=== PATIENT | male | born 1970 | race African-American/Black ===

== ENCOUNTER 2018-05-11 10:06 | Inpatient (IN) | payer BC ==
[2018-05-11 11:32] LABS: APPEARANCE,URINE SLIGHTLY-CLOUDY; BILIRUBIN,URINE NEGATIVE (NEGATIVE); COLOR,URINE YELLOW; GLUCOSE, URINE >=500 mg/dL (NEGATIVE); KETONES,URINE 80 mg/dL (NEGATIVE); LEUKOCYTE ESTERASE,URINE NEGATIVE (NEGATIVE); NITRITE,URINE NEGATIVE (NEGATIVE); PROTEIN,URINE NEGATIVE (NEGATIVE); URINE SPECIFIC GRAVITY 1.026; UROBILINOGEN,URINE NEGATIVE mg/dL (<2.0)
[2018-05-11] MEDS ORDERED: MAG HYDROX/AL HYDROX/SIMETH SUSP 30 ML UDCUP PO ONE (11:48)
[2018-05-11] MEDS ORDERED: NORMAL SALINE 1000 ML 1,000 ML IV ONE ×2 (11:48→15:08)
[2018-05-11] MEDS ORDERED: LIDOCAINE 2% VISCOUS SOLN 20 ML UDCUP PO ONE (11:48)
[2018-05-11] MEDS ORDERED: METOCLOPRAMIDE HCL ORAL SOLN 10 MG/10 ML UDCUP PO ONE (11:48)
[2018-05-11] MEDS ORDERED: FAMOTIDINE INJ/PF 20 MG/2 ML SDV IV ONE (11:49)
--- NOTE | 2018-05-11 11:51 | ER Document Report ---
ED Medical Screen (RME) - General Chief Complaint: Urinary Frequency Stated Complaint: ABDOMINAL PAIN Time Seen by Provider: 05/11/18 11:44 Mode of Arrival: Ambulatory Information source: Patient Notes: 48-year-old male with a history of diabetes presents the emergency department with complaints of epigastric abdominal pain, nausea, vomiting, feeling dehydrated, and urinating every 30 minutes. Patient describes his abdominal pain as a dull aching sensation located just above the periumbilical area. He denies any radiation. He denies any alleviating or exacerbating factors. He denies any chest pain or shortness of breath, diarrhea, constipation. I have greeted and performed a rapid initial assessment of this patient. A comprehensive ED assessment and evaluation of the patient, analysis of test results and completion of the medical decision making process will be conducted by additional ED providers. PHYSICAL EXAMINATION: GENERAL: Well-appearing, well-nourished and in no acute distress. HEAD: Atraumatic, normocephalic. EYES: Pupils equal round extraocular movements intact, conjunctiva are normal. ENT: Nares patent NECK: Normal range of motion LUNGS: No respiratory distress Musculoskeletal: Normal range of motion NEUROLOGICAL: Normal speech, normal gait. TRAVEL OUTSIDE OF THE [place] IN LAST 30 DAYS: No - Related Data Allergies/Adverse Reactions: No Known Allergies Allergy (Unverified 05/11/18 10:17) Past Medical History - Social History Chew tobacco use (# tins/day): No Frequency of alcohol use: None Drug Abuse: None Endocrine Medical History: Reports: Hx Diabetes Mellitus Type 2 Renal/ Medical History: Denies: Hx Peritoneal Dialysis Physical Exam - Vital signs Vitals: Temp Pulse Resp BP Pulse Ox 97.5 F 115 H 18 139/94 H 100 05/11/18 10:22 05/11/18 10:22 05/11/18 10:22 05/11/18 10:05/11/18 10:22 Course - Vital Signs Vital signs: Temp Pulse Resp BP Pulse Ox 97.5 F 115 H 18 139/94 H 100 05/11/18 10:22 05/11/18 10:22 05/11/18 10:22 05/11/18 10:22 05/11/18 10:22 - Laboratory Laboratory results interpreted by me: 05/11/18 11:04 Urine Glucose (UA) >=500 H Urine Ketones 80 H
--- NOTE | 2018-05-11 12:14 | RADIOLOGY REPORT (SQ) ---
EXAM DESCRIPTION: ACUTE ABDOMEN SERIES COMPLETED DATE/TIME: 05/11/2018 12:05 pm REASON FOR STUDY: epigastric abdominal pain COMPARISON: None. NUMBER OF VIEWS: Three views. TECHNIQUE: Frontal chest, supine abdomen and upright/decubitus abdomen radiographic images acquired. LIMITATIONS: None. FINDINGS: CHEST: Lungs clear of infiltrates. FREE AIR: None. No abnormal gas collections. BOWEL GAS PATTERN: Nonobstructive pattern. No dilated loops or air fluid levels. CALCIFICATIONS: No suspicious calcifications. HARDWARE: None in the abdomen. SOFT TISSUES: No gross mass or suggestion of organomegaly. BONES: No acute fracture. No worrisome bone lesions. OTHER: No other significant finding. IMPRESSION: NO RADIOGRAPHIC EVIDENCE FOR ACUTE ABDOMINAL DISEASE. TECHNICAL DOCUMENTATION: JOB ID: [id number] [employer]- All Rights Reserved Reading location - IP/workstation name: [email or web address]
[2018-05-11 12:55] LABS: ABSOLUTE LYMPHOCYTES (AUTO) 1.2 10^3/uL (0.5-4.7); ABSOLUTE MONOCYTES (AUTO) 0.6 10^3/uL (0.1-1.4); BASOPHILS % (AUTO) 0.3 % (0-2); HEMATOCRIT 48.8 % (37.9-51.0); HEMOGLOBIN 16.5 g/dL (13.5-17.0); LYMPHOCYTES % (AUTO) 15.6 % (13-45); MEAN CORPUSCULAR HEMOGLOBIN 31.9 pg (27.0-33.4); MEAN CORPUSCULAR HGB CONC 33.8 g/dL (32.0-36.0); MEAN CORPUSCULAR VOLUME 95 fl (80-97); MONOCYTES % (AUTO) 7.2 % (3-13); PLATELET COUNT 532 10^3/uL (150-450); RED BLOOD COUNT 5.16 10^6/uL (4.35-5.55); RED CELL DISTRIBUTION WIDTH 13.2 % (11.5-14.0); SEGMENTED NEUTROPHILS % (AUTO) 76.9 % (42-78); TOTAL CELLS COUNTED % (AUTO) 100 %; WHITE BLOOD COUNT 7.9 10^3/uL (4.0-10.5)
[2018-05-11 13:08] LABS: ALANINE AMINOTRANSFERASE 19 U/L (21-72); ALBUMIN 5.8 g/dL (3.5-5.0); ALKALINE PHOSPHATASE 136 U/L (38-126); ASPARTATE AMINO TRANSFERASE 23 U/L (17-59); BILIRUBIN,DIRECT 0.5 mg/dL (0.0-0.4); BILIRUBIN,TOTAL 1.5 mg/dL (0.2-1.3); BLOOD UREA NITROGEN 21 mg/dL (7-20); CALCIUM 11.3 mg/dL (8.4-10.2); LIPASE 238.7 U/L (23-300)
[2018-05-11 13:14] LABS: CARBON DIOXIDE 17 mmol/L (22-30); CHLORIDE 91 mmol/L (98-107); SODIUM 136.1 mmol/L (137-145)
[2018-05-11 13:24] LABS: ANION GAP 28 (5-19)
[2018-05-11 13:25] LABS: GLUCOSE 603 mg/dL (75-110); POTASSIUM 6.1 mmol/L (3.6-5.0)
[2018-05-11] MEDS ORDERED: CALCIUM GLUCONATE 1000 MG/10 ML INJ IV ONE (15:18)
[2018-05-11] MEDS ORDERED: FUROSEMIDE INJ/PF 40 MG/4 ML SDV IV ONE (15:19)
[2018-05-11] MEDS ORDERED: INSULIN REG, HUMAN 100 UNIT/ML 3 ML VIAL (PYX) IV ONE (15:19)
--- NOTE | 2018-05-11 15:22 | ER Document Report ---
ED General - General Chief Complaint: Urinary Frequency Stated Complaint: ABDOMINAL PAIN Time Seen by Provider: 05/11/18 11:44 Mode of Arrival: Ambulatory Information source: [facility], [facility] Records Notes: 48-year-old male with type 2 diabetes presents with complaint of increased urinary frequency, nausea, vomiting and abdominal pain that started several days prior to arrival. Patient reports that he has not been checking his sugars or taking his metformin as prescribed. He states that he lost his job and insurance and has not been able to afford his metformin. Patient denies any fever, chills, chest pain, palpitations. TRAVEL OUTSIDE OF THE [place] IN LAST 30 DAYS: No - HPI Onset: Other Onset/Duration: Gradual, Gone Quality of pain: No pain Severity: None Associated symptoms: Nausea, Vomiting. denies: Chest pain, Fever, Headache, Shortness of breath Exacerbated by: Denies Relieved by: Denies Similar symptoms previously: No Recently seen / treated by doctor: No - Related Data Allergies/Adverse Reactions: No Known Allergies Allergy (Unverified 05/11/18 10:17) Past Medical History - General Information source: Patient - Social History Smoking Status: Unknown if Ever Smoked Chew tobacco use (# tins/day): No Frequency of alcohol use: None Drug Abuse: None Lives with: Alone Family History: Reviewed & Not Pertinent Patient has suicidal ideation: No Patient has homicidal ideation: No - Past Medical History Cardiac Medical History: Reports: Hx Hypertension Endocrine Medical History: Reports: Hx Diabetes Mellitus Type 2 Renal/ Medical History: Denies: Hx Peritoneal Dialysis Review of Systems - Review of Systems Notes: REVIEW OF SYSTEMS: CONSTITUTIONAL : Denies fever, chills, or sweats. Denies recent illness. Denies weight loss, recent hospitalizations. EENT: Denies visual changes, eye pain. Denies sore throat, oral lesions, difficulty swallowing. CARDIOVASCULAR: Denies chest pain. Denies palpitations. Denies lower extremity edema. RESPIRATORY: Denies cough. Denies shortness of breath, wheezing. GASTROINTESTINAL: Denies abdominal distention. Denies or diarrhea. Denies blood in vomitus, stools, or per rectum. Denies black, tarry stools. Denies constipation. GENITOURINARY: Denies difficulty urinating, painful urination, blood in urine, testicular pain or penile discharge. MUSCULOSKELETAL: Denies back or neck pain or stiffness. Denies joint pain or swelling. SKIN: Denies rash, lesions or sores. HEMATOLOGIC : Denies easy bruising or bleeding. LYMPHATIC: Denies swollen glands. NEUROLOGICAL: Denies confusion or altered mental status. Denies loss of consciousness. Denies dizziness or lightheadedness. Denies headache. Denies weakness or paralysis. Denies problems difficulty with ambulation, slurred speech. Denies sensory loss, numbness, or tingling. Denies seizures. PSYCHIATRIC: Denies anxiety or stress. Denies depression, suicidal ideation, or Physical Exam - Vital signs Vitals: Temp Pulse Resp BP Pulse Ox 97.5 F 115 H 18 139/94 H 100 05/11/18 10:22 05/11/18 10:05/11/18 10:05/11/18 10:05/11/18 10:22 - Notes Notes: PHYSICAL EXAMINATION: GENERAL: Well-appearing, well-nourished and in no acute distress. Fruity smell to room HEAD: Atraumatic, normocephalic. EYES: Pupils equal round and reactive to light, extraocular movements intact, sclera anicteric, conjunctiva are normal. ENT: Nares patent, oropharynx clear without exudates. Dry mucous membranes. NECK: Normal range of motion, supple without lymphadenopathy LUNGS: Breath sounds clear to auscultation bilaterally and equal. No wheezes rales or rhonchi. HEART: Regular rate and rhythm without murmurs ABDOMEN: Soft, nontender, nondistended abdomen. No guarding, no rebound. No masses appreciated. Musculoskeletal: Normal range of motion, no pitting or edema. No cyanosis. NEUROLOGICAL: Cranial nerves grossly intact. Normal speech, normal gait. Normal sensory, motor exams PSYCH: Normal mood, normal affect. SKIN: Warm, Dry, normal turgor, no rashes or lesions noted. Course - Re-evaluation Re-evalutation: Temp Pulse Resp BP Pulse Ox 97.5 F 115 H 18 139/94 H 100 05/11/18 10:22 05/11/18 10:22 05/11/18 10:22 05/11/18 10:22 05/11/18 10:22 Acute Abdomen Series 05/11/18 11:48 IMPRESSION: NO RADIOGRAPHIC EVIDENCE FOR ACUTE ABDOMINAL DISEASE. Laboratory 05/11/18 05/11/18 05/11/18 11:04 12:26 12:26 WBC 7.9 RBC 5.16 Hgb 16.5 Hct 48.8 MCV 95 MCH 31.9 MCHC 33.8 RDW 13.2 Plt Count 532 H Seg Neutrophils % 76.9 Lymphocytes % 15.6 Monocytes % 7.2 Eosinophils % 0.0 Basophils % 0.3 Absolute Neutrophils 6.0 Absolute Lymphocytes 1.2 Absolute Monocytes 0.6 Absolute Eosinophils 0.0 Absolute Basophils 0.0 VBG pH VBG pCO2 VBG HCO3 VBG Base Excess Sodium 136.1 L Potassium 6.1 H* Chloride 91 L Carbon Dioxide 17 L Anion Gap 28 H BUN 21 H Creatinine 1.32 H Est GFR ( Amer) > 60 Est GFR (Non-Af Amer) 58 L Glucose 603 H* POC Glucose Calcium 11.3 H Total Bilirubin 1.5 H Direct Bilirubin 0.5 H Neonat Total Bilirubin Not Reportable Neonat Direct Bilirubin Not Reportable Neonat Indirect Bili Not Reportable AST 23 ALT 19 L Alkaline Phosphatase 136 H Total Protein 10.0 H Albumin 5.8 H Lipase 238.7 Urine Color YELLOW Urine Appearance SLIGHTLY-CLOUDY Urine pH 5.0 Ur Specific [place] 1.026 Urine Protein NEGATIVE Urine Glucose (UA) >=500 H Urine Ketones 80 H Urine Blood NEGATIVE Urine Nitrite NEGATIVE Urine Bilirubin NEGATIVE Urine Urobilinogen NEGATIVE Ur Leukocyte Esterase NEGATIVE Urine WBC (Auto) 0 Squamous Epi Cells Auto <1 Urine Mucus (Auto) RARE Urine Ascorbic Acid NEGATIVE 05/11/18 05/11/18 05/11/18 16:47 17:30 17:55 WBC RBC Hgb Hct MCV MCH MCHC RDW Plt Count Seg Neutrophils % Lymphocytes % Monocytes % Eosinophils % Basophils % Absolute Neutrophils Absolute Lymphocytes Absolute Monocytes Absolute Eosinophils Absolute Basophils VBG pH 7.20 L VBG pCO2 42.8 VBG HCO3 16.3 L VBG Base Excess -11.4 Sodium 143.0 Potassium 3.8 D Chloride 103 Carbon Dioxide 26 Anion Gap 14 BUN 10 Creatinine 0.81 Est GFR ( Amer) > 60 Est GFR (Non-Af Amer) > 60 Glucose 112 H POC Glucose 399 H Calcium 9.9 Total Bilirubin Direct Bilirubin Neonat Total Bilirubin Neonat Direct Bilirubin Neonat Indirect Bili AST ALT Alkaline Phosphatase Total Protein Albumin Lipase Urine Color Urine Appearance Urine pH Ur Specific [place] Urine Protein Urine Glucose (UA) Urine Ketones Urine Blood Urine Nitrite Urine Bilirubin Urine Urobilinogen Ur Leukocyte Esterase Urine WBC (Auto) Squamous Epi Cells Auto Urine Mucus (Auto) Urine Ascorbic Acid 05/11/18 05/11/18 18:39 19:52 WBC RBC Hgb Hct MCV MCH MCHC RDW Plt Count Seg Neutrophils % Lymphocytes % Monocytes % Eosinophils % Basophils % Absolute Neutrophils Absolute Lymphocytes Absolute Monocytes Absolute Eosinophils Absolute Basophils VBG pH VBG pCO2 VBG HCO3 VBG Base Excess Sodium Potassium Chloride Carbon Dioxide Anion Gap BUN Creatinine Est GFR ( Amer) Est GFR (Non-Af Amer) Glucose POC Glucose 385 H 389 H Calcium Total Bilirubin Direct Bilirubin Neonat Total Bilirubin Neonat Direct Bilirubin Neonat Indirect Bili AST ALT Alkaline Phosphatase Total Protein Albumin Lipase Urine Color Urine Appearance Urine pH Ur Specific [place] Urine Protein Urine Glucose (UA) Urine Ketones Urine Blood Urine Nitrite Urine Bilirubin Urine Urobilinogen Ur Leukocyte Esterase Urine WBC (Auto) Squamous Epi Cells Auto Urine Mucus (Auto) Urine Ascorbic Acid Acute Abdomen Series 05/11/18 11:48 IMPRESSION: NO RADIOGRAPHIC EVIDENCE FOR ACUTE ABDOMINAL DISEASE. 05/11/18 15:21 48-year-old male with type 2 diabetes presents with complaint of increased urinary frequency, abdominal pain, nausea, vomiting. Prior to my exam patient received GI cocktail, Reglan and reports relief of his abdominal pain and nausea. Patient does report being noncompliant with his metformin for several months due to loss of insurance. Vital signs reviewed upon arrival and patient is tachycardic, mildly hypertensive. He does not appear toxic but he does appear dehydrated. Patient's CMP, VBG and urinalysis consistent with DKA. Patient received 3 L of normal saline, insulin, calcium were administered. EKG was obtained which showed the patient to be sinus tachycardia at a rate of 103. T waves in V2 appear to be peaked. QTc 403. Patient does have T wave inversions in lead III. Repeat BMP shows glucose now to be 112 with an improvement in the patient's anion gap. D5 half-normal saline was initiated. Nurse reminded that patient needs to 30 Accu-Cheks. Patient accepted to the IMCU by hospitalist Dr. Hernandez. 05/12/18 01:27 05/12/18 01:33 - Vital Signs Vital signs: Temp Pulse Resp BP Pulse Ox 97.5 F 115 H 22 H 135/90 H 96 05/11/18 10:22 05/11/18 10:22 05/11/18 23:22 05/11/18 23:22 05/11/18 23:22 - Laboratory Result Diagrams: 05/11/18 12:26 05/11/18 22:15 Laboratory results interpreted by me: 05/11/18 05/11/18 05/11/18 11:04 12:26 12:26 Plt Count 532 H VBG pH VBG HCO3 Sodium 136.1 L Potassium 6.1 H* Chloride 91 L Carbon Dioxide 17 L Anion Gap 28 H BUN 21 H Creatinine 1.32 H Est GFR (Non-Af Amer) 58 L Glucose 603 H* POC Glucose Calcium 11.3 H Total Bilirubin 1.5 H Direct Bilirubin 0.5 H ALT 19 L Alkaline Phosphatase 136 H Total Protein 10.0 H Albumin 5.8 H Urine Glucose (UA) >=500 H Urine Ketones 80 H 05/11/18 05/11/18 05/11/18 16:47 17:30 17:55 Plt Count VBG pH 7.20 L VBG HCO3 16.3 L Sodium Potassium Chloride Carbon Dioxide Anion Gap BUN Creatinine Est GFR (Non-Af Amer) Glucose 112 H POC Glucose 399 H Calcium Total Bilirubin Direct Bilirubin ALT Alkaline Phosphatase Total Protein Albumin Urine Glucose (UA) Urine Ketones 05/11/18 05/11/18 18:39 19:52 Plt Count VBG pH VBG HCO3 Sodium Potassium Chloride Carbon Dioxide Anion Gap BUN Creatinine Est GFR (Non-Af Amer) Glucose POC Glucose 385 H 389 H Calcium Total Bilirubin Direct Bilirubin ALT Alkaline Phosphatase Total Protein Albumin Urine Glucose (UA) Urine Ketones - Diagnostic Test Radiology reviewed: Image reviewed, Reports reviewed - EKG Interpretation by Me EKG shows normal: Sinus rhythm, ST-T Waves - T wave inversions in lead III. Rate: Tachycardia Rhythm: NSR Voltage: Consistant with LVH When compared to previous EKG there are: Previous EKG unavailable Critical Care Note - Critical Care Note Total time excluding time spent on procedures (mins): 40 - Minutes of critical care time spent in direct contact evaluating and reevaluating the patient, treating symptoms, reviewing labs and studies and speaking with family and consultants excluding any procedures Discharge - Discharge Clinical Impression: DM (diabetes mellitus) type 2, uncontrolled, with ketoacidosis, Hypertension associated with diabetes DKA, type 2 Qualifiers: Diabetes mellitus alf insulin use: without alf use Diabetes nayan manzanares complication detail: without coma Qualified Code(s): E11.10 - Type 2 diabetes mellitus with ketoacidosis without coma Nausea with vomiting Qualifiers: Vomiting type: bilious vomiting Qualified Code(s): R11.14 - Bilious vomiting Condition: Critical Disposition: ADMITTED INPATIENT Admitting Provider: Hospitalist Unit Admitted: [facility]
[2018-05-11] MEDS ORDERED: LABETALOL HCL INJ 20 MG/4 ML DISP.SYRIN IV ONE (17:41)
[2018-05-11] MEDS ORDERED: NORMAL SALINE 100 ML with INSULIN REGULAR, HUMAN 100 UNIT IV PRN ×2 (17:44)
[2018-05-11] MEDS ORDERED: DEXTROSE 50%-WATER 25 GM/50 ML DISP.SYRIN IV PRN ×4 (17:44→21:27)
[2018-05-11] MEDS ORDERED: DEXTROSE 40% GEL 15 GM TUBE PO PRN ×4 (17:44→21:27)
[2018-05-11] MEDS ORDERED: GLUCAGON,HUMAN RECOMB 1 MG INJ IM PRN ×2 (17:44→21:27)
[2018-05-11 18:10] LABS: VENOUS BLOOD BASE EXCESS -11.4 mmol/L; VENOUS BLOOD HCO3 16.3 mmol/L (20-32); VENOUS BLOOD PCO2 42.8 mmHg (35-63); VENOUS BLOOD PH 7.2 (7.30-7.42)
[2018-05-11] MEDS ORDERED: INSULIN REG, HUMAN 100 UNIT/ML 3 ML VIAL (PYX) ONE (18:26)
[2018-05-11] MEDS ORDERED: MAG HYDROX/AL HYDROX/SIMETH SUSP 30 ML UDCUP PO PRN (21:13)
[2018-05-11] MEDS ORDERED: ONDANSETRON HCL INJ/PF 4 MG/2 ML SDV IV PRN (21:13)
[2018-05-11] MEDS ORDERED: MAGNESIUM HYDROXIDE SUSP 30 ML UDCUP PO PRN (21:13)
[2018-05-11] MEDS ORDERED: ONDANSETRON 4 MG TAB.RAPDIS PO PRN (21:13)
[2018-05-11] MEDS ORDERED: NORMAL SALINE 1000 ML 1,000 ML IV PRN (21:13)
[2018-05-11] MEDS ORDERED: NICOTINE 21 MG/24 HR PATCH.TD24 TD PRN (21:20)
[2018-05-11] MEDS ORDERED: ACETAMINOPHEN 650 MG SUPP.RECT PR PRN (21:20)
[2018-05-11] MEDS ORDERED: ACETAMINOPHEN 325 MG TABLET PO PRN (21:20)
[2018-05-11] MEDS ORDERED: LABETALOL HCL INJ 20 MG/4 ML DISP.SYRIN IV PRN (21:20)
[2018-05-11] MEDS ORDERED: NALBUPHINE HCL INJ 10 MG/1 ML AMPULE IV PRN (21:20)
[2018-05-11] MEDS ORDERED: FAMOTIDINE 20 MG TABLET PO SCH (22:00)
[2018-05-11] MEDS ORDERED: INSULIN GLARGINE,HUM.REC.ANLOG 300 UNIT/3 ML INSULN.PEN SUBCUT SCH (22:00)
[2018-05-11] MEDS ORDERED: INSULIN GLARGINE,HUM.REC.ANLOG 1,000 UNIT/10 ML UNIT SUBCUT SCH (22:00)
[2018-05-11] MEDS ORDERED: METOCLOPRAMIDE HCL INJ/PF 10 MG/2 ML SDV IV SCH (22:00)
[2018-05-11] MEDS ORDERED: POTASSI CL 20 MEQ/50 ML RIDER 20 MEQ/50 ML RTUPB IV ONE (22:30)
[2018-05-11] MEDS ORDERED: DEXTROSE 5%-1/2 NORMAL SALINE 1,000 ML IV ONE (22:52)
[2018-05-11 23:03] LABS: BLOOD UREA NITROGEN 19 mg/dL (7-20); GLUCOSE 387 mg/dL (75-110)
[2018-05-11 23:09] LABS: CHLORIDE 99 mmol/L (98-107); SODIUM 137.7 mmol/L (137-145)
[2018-05-11 23:12] LABS: CREATINE KINASE MB 3.27 ng/mL (<4.55)
[2018-05-11 23:18] LABS: TROPONIN I < 0.012 ng/mL
[2018-05-11 23:36] LABS: POTASSIUM 5.4 mmol/L (3.6-5.0)
[2018-05-11 23:37] LABS: ANION GAP 25 (5-19)
[2018-05-11] MEDS: INSULIN REG, HUMAN 100 UNIT/ML 3 ML VIAL (PYX) SUBCUT SCH (23:48)
[2018-05-12] LABS: CARBON DIOXIDE 14 mmol/L (22-30)
--- NOTE | 2018-05-12 04:10 | PDOC H&P ---
History of Present Illness Admission Date/PCP: 05/11/2018 No PCP Patient complains of: Nausea, vomiting and abdominal pain History of Present Illness: DAVI IVEY is a 48 year old male who presented to the emergency room with a several day history of nausea vomiting and epigastric abdominal pain. He admits progressively worsening nausea with vomiting and a moderately severe becoming severe, constant, dull, aching, epigastric pain without radiation occurring over the last 3 or 4 days. He additionally complains of the associated symptom of urinary frequency without dysuria or hematuria occurring over the same timeframe. He denies having prior similar symptoms and has not identified any aggravating or ameliorating factors for his abdominal pain with nausea and vomiting. He admits that he is a type II diabetic and has not been taking his oral diabetic medication for several months due to financial problems associated with the loss of his job. Because of the worsening of his symptoms especially the increased level of his abdominal pain he presented to the emergency room for evaluation. In the emergency room he was found to have an initial blood sugar of 603, with a pH of 7.2, a bicarbonate of 17, a positive urine ketones and a potassium of 6.1. He was started on insulin drip and IV fluids. His blood sugar had reduced to 385 and he was showing a positive response with improvement in his overall feeling of well-being. He was subsequently admitted to the [facility] for further evaluation and treatment of his acute diabetic ketoacidosis. Past Medical History Cardiac Medical History: Denies: Coronary Artery Disease, Hypertension, Peripheral Vascular Disease Pulmonary Medical History: Denies: Asthma, Chronic Obstructive Pulmonary Disease (COPD) EENT Medical History: Denies: Cataracts, Nose - Epistaxis Neurological Medical History: Denies: Multiple Sclerosis, Seizures Endocrine Medical History: Reports: Diabetes Mellitus Type 2, Obesity Denies: Diabetes Mellitus Type 1, Hyperthyroidism, Hypothyroidism Renal/ Medical History: Denies: Chronic Kidney Disease, Nephrolithiasis Malignancy Medical History: Reports: None GI Medical History: Denies: Cirrhosis, Hepatitis Musculoskeltal Medical History: Denies: Arthritis, Gout Skin Medical History: Denies: Eczema, Psoriasis Psychiatric Medical History: Denies: Alcohol Dependency, Substance Abuse, Tobacco Dependency Traumatic Medical History: Reports: None Hematology: Denies: Anemia, Bleeding Tendencies Infectious Medical History: Reports: None Past Surgical History Past Surgical History: Reports: None Social History Information Source: Patient Lives with: Alone Smoking Status: Never Smoker Frequency of Alcohol Use: None Hx Recreational Drug Use: No Drugs: None Hx Prescription Drug Abuse: No - Advance Directive Resuscitation Status: Full Code Surrogate healthcare decision maker:: Patient refuses to name a possible democrat. Family History Family History: CAD, DM, Hypertension, Malignancy, Other - Heart failure Parental Family History Reviewed: Yes Children Family History Reviewed: No Sibling(s) Family History Reviewed.: Yes Medication/Allergy Allergies/Adverse Reactions: No Known Allergies Allergy (Unverified 05/11/18 10:17) Review of Systems Constitutional: ABSENT: chills, fever(s) Eyes: ABSENT: visual disturbances, other - Ocular pain Ears: ABSENT: other - Ear pain Nose, Mouth, and Throat: ABSENT: mouth pain, sore throat Cardiovascular: ABSENT: chest pain, dyspnea on exertion, orthropnea, palpitations Respiratory: ABSENT: cough, dyspnea Gastrointestinal: PRESENT: abdominal pain, nausea, vomiting. ABSENT: constipation, diarrhea Genitourinary: ABSENT: dysuria, hematuria Musculoskeletal: ABSENT: back pain, joint swelling Integumentary: ABSENT: pruritus, rash Neurological: ABSENT: confusion, convulsions, memory loss Psychiatric: ABSENT: anxiety, depression Endocrine: ABSENT: cold intolerance, heat intolerance Hematologic/Lymphatic: ABSENT: easy bleeding, easy bruising Physical Exam Vital Signs: Temp Pulse Resp BP Pulse Ox 97.5 F 115 H 23 H 128/90 H 97 05/11/18 10:22 05/11/18 10:22 05/11/18 19:01 05/11/18 19:01 05/11/18 19:01 Intake & Output 05/09/18 05/10/18 05/11/18 23:59 23:59 23:59 Weight 124 kg General appearance: PRESENT: no acute distress, cooperative, morbidly obese Head exam: PRESENT: atraumatic, normocephalic Eye exam: PRESENT: conjunctiva pink, EOMI. ABSENT: scleral icterus Ear exam: PRESENT: normal external ear exam. ABSENT: bleeding, drainage Mouth exam: PRESENT: dry mucosa, neck supple Neck exam: ABSENT: JVD, thyromegaly, tracheal deviation Respiratory exam: PRESENT: clear to auscultation fernandez, symmetrical, unlabored Cardiovascular exam: PRESENT: RRR. ABSENT: clicks, gallop, rubs Pulses: PRESENT: normal radial pulses, normal dorsalis pedis pul Vascular exam: PRESENT: normal capillary refill. ABSENT: pallor GI/Abdominal exam: PRESENT: normal bowel sounds, soft, tenderness - Minimal epigastric tenderness on deep palpation Rectal exam: PRESENT: deferred Extremities exam: ABSENT: joint swelling, pedal edema Musculoskeletal exam: PRESENT: full ROM, normal inspection Neurological exam: PRESENT: alert, oriented to person, oriented to place, oriented to time, oriented to situation, CN II-XII grossly intact. ABSENT: motor sensory deficit Psychiatric exam: PRESENT: appropriate affect, normal mood Skin exam: PRESENT: dry, intact, warm. ABSENT: jaundice, rash, urticaria Results Laboratory Results: 05/11/18 12:26 05/11/18 17:30 05/11/18 05/11/18 05/11/18 11:04 12:26 12:26 WBC 7.9 RBC 5.16 Hgb 16.5 Hct 48.8 MCV 95 MCH 31.9 MCHC 33.8 RDW 13.2 Plt Count 532 H Seg Neutrophils % 76.9 Lymphocytes % 15.6 Monocytes % 7.2 Eosinophils % 0.0 Basophils % 0.3 Absolute Neutrophils 6.0 Absolute Lymphocytes 1.2 Absolute Monocytes 0.6 Absolute Eosinophils 0.0 Absolute Basophils 0.0 VBG pH VBG pCO2 VBG HCO3 VBG Base Excess Sodium 136.1 L Potassium 6.1 H* Chloride 91 L Carbon Dioxide 17 L Anion Gap 28 H BUN 21 H Creatinine 1.32 H Est GFR ( Amer) > 60 Est GFR (Non-Af Amer) 58 L Glucose 603 H* Calcium 11.3 H Total Bilirubin 1.5 H AST 23 ALT 19 L Alkaline Phosphatase 136 H Total Protein 10.0 H Albumin 5.8 H Lipase 238.7 Urine Color YELLOW Urine Appearance SLIGHTLY-CLOUDY Urine pH 5.0 Ur Specific [place] 1.026 Urine Protein NEGATIVE Urine Glucose (UA) >=500 H Urine Ketones 80 H Urine Blood NEGATIVE Urine Nitrite NEGATIVE Ur Leukocyte Esterase NEGATIVE Urine WBC (Auto) 0 05/11/18 05/11/18 17:30 17:55 WBC RBC Hgb Hct MCV MCH MCHC RDW Plt Count Seg Neutrophils % Lymphocytes % Monocytes % Eosinophils % Basophils % Absolute Neutrophils Absolute Lymphocytes Absolute Monocytes Absolute Eosinophils Absolute Basophils VBG pH 7.20 L VBG pCO2 42.8 VBG HCO3 16.3 L VBG Base Excess -11.4 Sodium 143.0 Potassium 3.8 D Chloride 103 Carbon Dioxide 26 Anion Gap 14 BUN 10 Creatinine 0.81 Est GFR ( Amer) > 60 Est GFR (Non-Af Amer) > 60 Glucose 112 H Calcium 9.9 Total Bilirubin AST ALT Alkaline Phosphatase Total Protein Albumin Lipase Urine Color Urine Appearance Urine pH Ur Specific [place] Urine Protein Urine Glucose (UA) Urine Ketones Urine Blood Urine Nitrite Ur Leukocyte Esterase Urine WBC (Auto) Impressions: Acute Abdomen Series 05/11/18 11:48 IMPRESSION: NO RADIOGRAPHIC EVIDENCE FOR ACUTE ABDOMINAL DISEASE. Assessment & Plan - Diagnosis (1) DM (diabetes mellitus) type 2, uncontrolled, with ketoacidosis Is this a current diagnosis for this admission?: Yes Plan: Patient is admitted to the [facility] and will be treated with an insulin infusion until control of his blood sugar has been established. He will additionally be treated with high volume IV fluids and symptomatic and supportive cares for his associated symptoms. Hemoglobin A1c will be obtained to evaluate his diabetes mellitus and an ongoing plan for diabetic care in the post hospital state will be established. (2) Nausea with vomiting Qualifiers: Vomiting type: bilious vomiting Qualified Code(s): R11.14 - Bilious vomiting Is this a current diagnosis for this admission?: Yes Plan: Patient will receive high-volume IV fluids for fluid replacement with close monitoring of his electrolyte status as well as his blood sugar. He will receive antiemetics as required for control of his nausea and vomiting as well as other symptomatic and supportive cares as required. (3) Epigastric abdominal pain Is this a current diagnosis for this admission?: Yes Plan: Patient will receive Nubain 10 mg IV every 3 hours as needed for abdominal pain. (4) Hypertension associated with diabetes Is this a current diagnosis for this admission?: Yes Plan: Patient's blood pressure was controlled with IV labetalol in the emergency room and he will be continued with as needed dosing of IV labetalol until he is able to tolerate oral medications. If his blood pressure elevation is persistent after his diabetes is in reasonable control he will be started on an oral antihypertensive medication of his daytime hospitalist's choosing. (5) Morbid obesity with BMI of 40.0-44.9, adult Is this a current diagnosis for this admission?: Yes Plan: Nutritional services will be consulted before evaluation and recommendation for diet therapy to enhance weight loss and control blood sugars. - Time Time Spent: 30 to 50 Minutes Critical Time spent with patient: Less than 15 minutes Medications reviewed and adjusted accordingly: No Anticipated discharge: Home - Inpatient Certification Based on my medical assessment, after consideration of the patient's comorbidities, presenting symptoms, or acuity I expect that the services needed warrant INPATIENT care.: Yes I certify that my determination is in accordance with my understanding of Medicare's requirements for reasonable and necessary INPATIENT services [42 CFR 412.3e].: Yes Medical Necessity: Need Close Monitoring Due to Risk of Patient Decompensation, Need For IV Fluids, Need For Continuous Telemetry Monitoring, Need for Pain Control, Risk of Complication if Not Cared For in Hospital
[2018-05-12] MEDS ORDERED: INSULIN GLARGINE,HUM.REC.ANLOG 300 UNIT/3 ML INSULN.PEN SUBCUT ONE (04:15)
[2018-05-12] MEDS ORDERED: INSULIN GLARGINE,HUM.REC.ANLOG 1,000 UNIT/10 ML UNIT SUBCUT ONE (04:20)
[2018-05-12 06:06] LABS: ABSOLUTE LYMPHOCYTES (AUTO) 1.4 10^3/uL (0.5-4.7); ABSOLUTE MONOCYTES (AUTO) 1.1 10^3/uL (0.1-1.4); ABSOLUTE NEUT (AUTO) 4.8 10^3/uL (1.7-8.2); BASOPHILS % (AUTO) 0.5 % (0-2); EOSINOPHILS % (AUTO) 0.7 % (0-6); HEMATOCRIT 43.4 % (37.9-51.0); HEMOGLOBIN 14.9 g/dL (13.5-17.0); LYMPHOCYTES % (AUTO) 19.3 % (13-45); MEAN CORPUSCULAR HEMOGLOBIN 31.3 pg (27.0-33.4); MEAN CORPUSCULAR HGB CONC 34.2 g/dL (32.0-36.0); MONOCYTES % (AUTO) 14.5 % (3-13); PLATELET COUNT 404 10^3/uL (150-450); RED BLOOD COUNT 4.75 10^6/uL (4.35-5.55); RED CELL DISTRIBUTION WIDTH 13.3 % (11.5-14.0); TOTAL CELLS COUNTED % (AUTO) 100 %; WHITE BLOOD COUNT 7.4 10^3/uL (4.0-10.5)
[2018-05-12 06:18] LABS: MEAN CORPUSCULAR VOLUME 91 fl (80-97)
[2018-05-12 06:29] LABS: AMYLASE 53 U/L (30-110); ANION GAP 18 (5-19); BLOOD UREA NITROGEN 20 mg/dL (7-20); CARBON DIOXIDE 19 mmol/L (22-30); CHLORIDE 102 mmol/L (98-107); CHOLESTEROL 256.11 mg/dL (0-200); CREATINE KINASE 159 U/L (55-170); GLUCOSE 242 mg/dL (75-110); LIPASE 278.4 U/L (23-300); POTASSIUM 4.9 mmol/L (3.6-5.0); SODIUM 138.7 mmol/L (137-145); TRIGLYCERIDES 155 mg/dL (<150)
[2018-05-12 06:40] LABS: DIRECT LDL 162 mg/dL (<100)
[2018-05-12 06:42] LABS: CREATINE KINASE MB 3.06 ng/mL (<4.55)
[2018-05-12 06:46] LABS: FREE T3 2.69 pg/mL (2.77-5.27)
[2018-05-12 06:47] LABS: FREE T4 (FREE THYROXINE) 1.53 ng/dL (0.78-2.19)
[2018-05-12 06:59] LABS: THYROID STIMULATING HORMONE 2.92 uIU/mL (0.47-4.68)
[2018-05-12 07:24] LABS: TROPONIN I < 0.012 ng/mL
[2018-05-12] MEDS: INSULIN REG, HUMAN 100 UNIT/ML 3 ML VIAL (PYX) SUBCUT SCH ×4 (10:00→21:34)
[2018-05-12] MEDS: DOCUSATE SODIUM 100 MG CAPSULE PO SCH ×2 (10:01→17:22)
[2018-05-12] MEDS: FAMOTIDINE 20 MG TABLET PO SCH ×4 (10:01→21:22)
[2018-05-12] MEDS: ENOXAPARIN SODIUM INJ 40 MG/0.4 ML DISP.SYRIN SUBCUT SCH (10:01)
[2018-05-12] MEDS: METOCLOPRAMIDE HCL 10 MG TABLET PO SCH ×4 (10:40→21:23)
[2018-05-12] MEDS: SUCRALFATE SUSP 1 GM/10 ML UDCUP PO SCH ×4 (10:40→21:22)
[2018-05-12 10:49] LABS: APPEARANCE,URINE CLEAR; BILIRUBIN,URINE NEGATIVE (NEGATIVE); COLOR,URINE YELLOW; GLUCOSE, URINE >=500 mg/dL (NEGATIVE); KETONES,URINE 80 mg/dL (NEGATIVE); LEUKOCYTE ESTERASE,URINE NEGATIVE (NEGATIVE); NITRITE,URINE NEGATIVE (NEGATIVE); PROTEIN,URINE NEGATIVE (NEGATIVE); URINE SPECIFIC GRAVITY 1.018; UROBILINOGEN,URINE NEGATIVE mg/dL (<2.0)
[2018-05-12 11:05] LABS: URINE AMPHETAMINES SCREEN NEGATIVE; URINE BARBITURATES SCREEN NEGATIVE; URINE BENZODIAZEPINES SCREEN NEGATIVE; URINE COCAINE SCREEN NEGATIVE; URINE MARIJUANA (THC) SCREEN NEGATIVE; URINE METHADONE SCREEN NEGATIVE; URINE PHENCYCLIDINE SCREEN NEGATIVE
[2018-05-12 12:29] LABS: CREATINE KINASE MB 3.72 ng/mL (<4.55)
[2018-05-12 12:40] LABS: TROPONIN I < 0.012 ng/mL
--- NOTE | 2018-05-12 12:41 | EKG REPORT ---
SEVERITY:- ABNORMAL ECG - SINUS TACHYCARDIA LEFT VENTRICULAR HYPERTROPHY BORDERLINE T ABNORMALITIES, INFERIOR LEADS : Confirmed by: Kimberly Butterfield 12-May-2018 12:40:03
--- NOTE | 2018-05-12 12:57 | PDOC PROGRESS REPORT ---
Subjective Progress Note for:: 05/12/18 Subjective:: The patient is a 48-year-old male with a past medical history of insulin- dependent DM 2 and obesity who was admitted 05/11/18 for DKA. The patient was seen on morning rounds. He was found resting in bed comfortably on room air. He was sleeping when I entered the room, but woke easily when I said his name. He reports that he is feeling well today, though remains f atigued, but tolerated his breakfast well. He denies any further episodes of epigastric discomfort, nausea or vomiting. He further denies fever, chills, headache, dizziness, chest pain, palpitations, dyspnea, orthopnea, diarrhea, polydipsia, or polyuria. He has no other questions or concerns. Nursing reports that the patient does not appear to be familiar with his diabetic diet or management; concern for readmission potential. Reason For Visit: ACUTE DIABETIC KETOACIDOSIS (DIABETES MELLITUS Physical Exam Vital Signs: Temp Pulse Resp BP Pulse Ox 97.9 F 95 18 127/83 H 94 05/12/18 03:56 05/12/18 07:00 05/12/18 03:56 05/12/18 03:56 05/12/18 03:56 Intake & Output 05/11/18 05/12/18 05/13/18 06:59 06:59 06:59 Intake Total 313 Balance 313 Weight 123.8 kg General appearance: PRESENT: no acute distress, morbidly obese, well-developed Head exam: PRESENT: atraumatic, normocephalic Eye exam: PRESENT: conjunctiva pink, EOMI, PERRLA. ABSENT: scleral icterus Ear exam: PRESENT: normal external ear exam Mouth exam: PRESENT: moist, tongue midline Neck exam: ABSENT: carotid bruit, JVD, lymphadenopathy, thyromegaly Respiratory exam: PRESENT: clear to auscultation fernandez, symmetrical, unlabored. ABSENT: rales, rhonchi, wheezes Cardiovascular exam: PRESENT: RRR, +S1, +S2. ABSENT: diastolic murmur, rubs, systolic murmur Pulses: PRESENT: normal dorsalis pedis pul Vascular exam: PRESENT: normal capillary refill GI/Abdominal exam: PRESENT: normal bowel sounds, soft. ABSENT: distended, guarding, mass, organolmegaly, rebound, tenderness Rectal exam: PRESENT: deferred Extremities exam: PRESENT: full ROM. ABSENT: calf tenderness, clubbing, pedal edema Neurological exam: PRESENT: alert, awake, oriented to person, oriented to place, oriented to time, oriented to situation, CN II-XII grossly intact. ABSENT: m otor sensory deficit Psychiatric exam: PRESENT: normal mood, unusual affect. ABSENT: homicidal ideation, suicidal ideation Skin exam: PRESENT: dry, intact, warm. ABSENT: cyanosis, rash Results Laboratory Results: 05/12/18 05:42 05/12/18 05:42 05/11/18 05/11/18 05/11/18 12:26 12:26 17:30 WBC 7.9 RBC 5.16 Hgb 16.5 Hct 48.8 MCV 95 MCH 31.9 MCHC 33.8 RDW 13.2 Plt Count 532 H Seg Neutrophils % 76.9 Lymphocytes % 15.6 Monocytes % 7.2 Eosinophils % 0.0 Basophils % 0.3 Absolute Neutrophils 6.0 Absolute Lymphocytes 1.2 Absolute Monocytes 0.6 Absolute Eosinophils 0.0 Absolute Basophils 0.0 VBG pH VBG pCO2 VBG HCO3 VBG Base Excess Sodium 136.1 L Potassium 6.1 H* Chloride 91 L Carbon Dioxide 17 L Anion Gap 28 H BUN 21 H Creatinine 1.32 H Est GFR ( Amer) > 60 Est GFR (Non-Af Amer) 58 L Glucose 603 H* Calcium 11.3 H Magnesium Total Bilirubin 1.5 H AST 23 ALT 19 L Alkaline Phosphatase 136 H Total Protein 10.0 H Albumin 5.8 H Triglycerides Cholesterol LDL Cholesterol Direct VLDL Cholesterol HDL Cholesterol Amylase Lipase 238.7 TSH Free T4 Free T3 pg/mL Urine Color Urine Appearance Urine pH Ur Specific [place] Urine Protein Urine Glucose (UA) Urine Ketones Urine Blood Urine Nitrite Ur Leukocyte Esterase Urine WBC (Auto) Urine RBC (Auto) 05/11/18 05/11/18 05/12/18 17:55 22:15 05:42 WBC 7.4 RBC 4.75 Hgb 14.9 Hct 43.4 MCV 91 D MCH 31.3 MCHC 34.2 RDW 13.3 Plt Count 404 Seg Neutrophils % 65.0 Lymphocytes % 19.3 Monocytes % 14.5 H Eosinophils % 0.7 Basophils % 0.5 Absolute Neutrophils 4.8 Absolute Lymphocytes 1.4 Absolute Monocytes 1.1 Absolute Eosinophils 0.0 Absolute Basophils 0.0 VBG pH 7.20 L VBG pCO2 42.8 VBG HCO3 16.3 L VBG Base Excess -11.4 Sodium 137.7 Potassium 5.4 H Chloride 99 Carbon Dioxide 14 L Anion Gap 25 H BUN 19 Creatinine 1.18 Est GFR ( Amer) > 60 Est GFR (Non-Af Amer) > 60 Glucose 387 H Calcium 10.0 Magnesium Total Bilirubin AST ALT Alkaline Phosphatase Total Protein Albumin Triglycerides Cholesterol LDL Cholesterol Direct VLDL Cholesterol HDL Cholesterol Amylase Lipase TSH Free T4 Free T3 pg/mL Urine Color Urine Appearance Urine pH Ur Specific [place] Urine Protein Urine Glucose (UA) Urine Ketones Urine Blood Urine Nitrite Ur Leukocyte Esterase Urine WBC (Auto) Urine RBC (Auto) 05/12/18 05/12/18 05/12/18 05:42 05:42 10:25 WBC RBC Hgb Hct MCV MCH MCHC RDW Plt Count Seg Neutrophils % Lymphocytes % Monocytes % Eosinophils % Basophils % Absolute Neutrophils Absolute Lymphocytes Absolute Monocytes Absolute Eosinophils Absolute Basophils VBG pH VBG pCO2 VBG HCO3 VBG Base Excess Sodium 138.7 Potassium 4.9 Chloride 102 Carbon Dioxide 19 L Anion Gap 18 BUN 20 Creatinine 1.08 Est GFR ( Amer) > 60 Est GFR (Non-Af Amer) > 60 Glucose 242 H Calcium 10.0 Magnesium 2.0 Total Bilirubin AST ALT Alkaline Phosphatase Total Protein Albumin Triglycerides 155 H Cholesterol 256.11 H LDL Cholesterol Direct 162 H VLDL Cholesterol 31.0 HDL Cholesterol 56 Amylase 53 Lipase 278.4 TSH 2.92 Free T4 1.53 Free T3 pg/mL 2.69 L Urine Color YELLOW Urine Appearance CLEAR Urine pH 5.0 Ur Specific [place] 1.018 Urine Protein NEGATIVE Urine Glucose (UA) >=500 H Urine Ketones 80 H Urine Blood NEGATIVE Urine Nitrite NEGATIVE Ur Leukocyte Esterase NEGATIVE Urine WBC (Auto) 2 Urine RBC (Auto) 0 05/11/18 05/11/18 05/12/18 22:15 22:15 05:42 Creatine Kinase 155 CK-MB (CK-2) 3.27 3.06 Troponin I < 0.012 < 0.012 05/12/18 05/12/18 05/12/18 05:42 10:58 10:58 Creatine Kinase 159 157 CK-MB (CK-2) 3.72 Troponin I < 0.012 Impressions: Acute Abdomen Series 05/11/18 11:48 IMPRESSION: NO RADIOGRAPHIC EVIDENCE FOR ACUTE ABDOMINAL DISEASE. Assessment & Plan - Diagnosis (1) DM (diabetes mellitus) type 2, uncontrolled, with ketoacidosis Is this a current diagnosis for this admission?: Yes Plan: The patient is admitted to [facility] on continuous cardiac telemetry. Overnight, he was provided generous IV fluids and placed on an insulin drip. His anion gap has subsequently closed and his bicarb is improved to 19 from a low of 14. Patient reports that his abdominal discomfort, nausea, and vomiting have all resolved. He has tolerated a consistent carb diet well today. We will continue gentle maintenance IV fluids. Diet has been advanced to a consistent carb and cardiac diet. Continue Lantus 20 units twice daily. Accu-Cheks before meals and at bedtime with Humalog for sliding scale coverage. The registered dietitian, health educator, patient navigator, and business planner have all been consulted. If possible, the patient would benefit from home health nurse for disease and medication education and management. Otherwise, may benefit from the community cook fruit program has nursing have identified the patient as having low health literacy and being at high risk for recurrent DKA and readmission. (2) Hypertension Is this a current diagnosis for this admission?: Yes Plan: The patient is unaware of a history of hypertension. Is acute illness is much improved/DKA is resolved, however, he remains hype rtensive. Will initiate low-dose lisinopril. Continue consistent carb/cardiac diet. (3) Morbid obesity with BMI of 40.0-44.9, adult Is this a current diagnosis for this admission?: Yes Plan: Dietary discretion is advised. The registered dietitian and health educator are consulted. (4) Epigastric abdominal pain Is this a current diagnosis for this admission?: Yes Plan: Resolved; likely secondary to nausea and vomiting in setting of DKA. (5) Nausea with vomiting Qualifiers: Vomiting type: bilious vomiting Qualified Code(s): R11.14 - Bilious vomiting Is this a current diagnosis for this admission?: Yes Plan: Resolved; secondary to DKA. Continue gentle IV maintenance fluids. Antiemetics as needed. - Time Time Spent with patient: 15-24 minutes Smoking Cessation Education: 3 to 10 minutes Medications reviewed and adjusted accordingly: Yes Anticipated discharge: Home Within: within 24 hours - Needs to meet with health educator, acid washer operator, navigator, and business planner. Anticipate bgl to be controlled enough for d/c in AM.
[2018-05-12] MEDS: LISINOPRIL 5 MG TABLET PO SCH (14:04)
[2018-05-12] MEDS: NORMAL SALINE 1000 ML 1,000 ML IV PRN ×2 (14:06→23:10)
[2018-05-12] MEDS: INSULIN GLARGINE,HUM.REC.ANLOG 1,000 UNIT/10 ML UNIT SUBCUT SCH (17:22)
[2018-05-12] MEDS ORDERED: PHENYLEPHRINE HCL 1 EACH SUPP.RECT PR PRN (21:38)
[2018-05-13 04:21] LABS: ABSOLUTE BASOPHILS # (AUTO) 0.1 10^3/uL (0.0-0.2); ABSOLUTE EOSINOPHILS # (AUTO) 0.1 10^3/uL (0.0-0.6); ABSOLUTE LYMPHOCYTES (AUTO) 1.7 10^3/uL (0.5-4.7); ABSOLUTE MONOCYTES (AUTO) 0.7 10^3/uL (0.1-1.4); ABSOLUTE NEUT (AUTO) 3.3 10^3/uL (1.7-8.2); BASOPHILS % (AUTO) 1.2 % (0-2); EOSINOPHILS % (AUTO) 1.4 % (0-6); HEMATOCRIT 39.8 % (37.9-51.0); HEMOGLOBIN 13.8 g/dL (13.5-17.0); LYMPHOCYTES % (AUTO) 29.1 % (13-45); MEAN CORPUSCULAR HEMOGLOBIN 31.6 pg (27.0-33.4); MEAN CORPUSCULAR HGB CONC 34.6 g/dL (32.0-36.0); MEAN CORPUSCULAR VOLUME 91 fl (80-97); MONOCYTES % (AUTO) 11.5 % (3-13); PLATELET COUNT 343 10^3/uL (150-450); RED BLOOD COUNT 4.36 10^6/uL (4.35-5.55); RED CELL DISTRIBUTION WIDTH 13.3 % (11.5-14.0); SEGMENTED NEUTROPHILS % (AUTO) 56.8 % (42-78); TOTAL CELLS COUNTED % (AUTO) 100 %; WHITE BLOOD COUNT 5.7 10^3/uL (4.0-10.5)
[2018-05-13 04:35] LABS: ANION GAP 13 (5-19); BLOOD UREA NITROGEN 17 mg/dL (7-20); CALCIUM 9.4 mg/dL (8.4-10.2); CARBON DIOXIDE 22 mmol/L (22-30); CHLORIDE 102 mmol/L (98-107); GLUCOSE 275 mg/dL (75-110); SODIUM 137.4 mmol/L (137-145)
[2018-05-13] MEDS: NORMAL SALINE 1000 ML 1,000 ML IV PRN ×2 (06:51→16:54)
[2018-05-13] MEDS: FAMOTIDINE 20 MG TABLET PO SCH ×4 (08:02→21:12)
[2018-05-13] MEDS: SUCRALFATE SUSP 1 GM/10 ML UDCUP PO SCH ×4 (08:04→21:12)
[2018-05-13] MEDS: INSULIN REG, HUMAN 100 UNIT/ML 3 ML VIAL (PYX) SUBCUT SCH ×4 (08:04→21:11)
[2018-05-13] MEDS: METOCLOPRAMIDE HCL 10 MG TABLET PO SCH ×4 (08:04→21:12)
[2018-05-13] MEDS: LISINOPRIL 5 MG TABLET PO SCH (09:32)
[2018-05-13] MEDS: DOCUSATE SODIUM 100 MG CAPSULE PO SCH ×2 (09:32→17:31)
[2018-05-13] MEDS: ENOXAPARIN SODIUM INJ 40 MG/0.4 ML DISP.SYRIN SUBCUT SCH (09:33)
[2018-05-13] MEDS: INSULIN GLARGINE,HUM.REC.ANLOG 1,000 UNIT/10 ML UNIT SUBCUT SCH ×3 (09:33→21:11)
--- NOTE | 2018-05-13 11:48 | PDOC PROGRESS REPORT ---
Subjective Progress Note for:: 05/13/18 Subjective:: No overnight events. Sleeping upon entering room however easily arousable and conversant. Feeling fine. Denies abdominal pain, NV. Discussed that blood sugars remain elevated and need to optomize prior to d/c planning. Has been ambulatory. No active complaints. Reason For Visit: ACUTE DIABETIC KETOACIDOSIS (DIABETES MELLITUS Physical Exam Vital Signs: Temp Pulse Resp BP Pulse Ox 98.1 F 87 18 139/75 H 100 05/13/18 07:30 05/13/18 07:30 05/13/18 07:30 05/13/18 07:30 05/13/18 07:30 Intake & Output 05/12/18 05/13/18 05/14/18 06:59 06:59 06:59 Intake Total 313 3500 Balance 313 3500 Weight 123.8 kg 126.3 kg General appearance: PRESENT: no acute distress, cooperative, morbidly obese Mouth exam: PRESENT: moist Respiratory exam: PRESENT: unlabored. ABSENT: wheezes Cardiovascular exam: PRESENT: RRR. ABSENT: tachycardia GI/Abdominal exam: PRESENT: soft. ABSENT: distended, tenderness Extremities exam: ABSENT: +1 edema Neurological exam: PRESENT: alert, awake, CN II-XII grossly intact Psychiatric exam: PRESENT: appropriate affect Skin exam: PRESENT: dry Results Laboratory Results: 05/13/18 04:05 05/13/18 04:05 05/13/18 05/13/18 04:05 04:05 WBC 5.7 RBC 4.36 Hgb 13.8 Hct 39.8 MCV 91 MCH 31.6 MCHC 34.6 RDW 13.3 Plt Count 343 Seg Neutrophils % 56.8 Lymphocytes % 29.1 Monocytes % 11.5 Eosinophils % 1.4 Basophils % 1.2 Absolute Neutrophils 3.3 Absolute Lymphocytes 1.7 Absolute Monocytes 0.7 Absolute Eosinophils 0.1 Absolute Basophils 0.1 Sodium 137.4 Potassium 4.0 Chloride 102 Carbon Dioxide 22 Anion Gap 13 BUN 17 Creatinine 0.83 Est GFR ( Amer) > 60 Est GFR (Non-Af Amer) > 60 Glucose 275 H Calcium 9.4 Magnesium 1.8 05/11/18 05/11/18 05/12/18 22:15 22:15 05:42 Creatine Kinase 155 CK-MB (CK-2) 3.27 3.06 Troponin I < 0.012 < 0.012 05/12/18 05/12/18 05/12/18 05:42 10:58 10:58 Creatine Kinase 159 157 CK-MB (CK-2) 3.72 Troponin I < 0.012 Impressions: Acute Abdomen Series 05/11/18 11:48 IMPRESSION: NO RADIOGRAPHIC EVIDENCE FOR ACUTE ABDOMINAL DISEASE. Assessment & Plan - Diagnosis (1) DKA, type 2 Qualifiers: Diabetes mellitus terminal worker insulin use: without terminal worker use Diabetes mellitus complication detail: without coma Qualified Code(s): E11.10 - Type 2 diabetes mellitus with ketoacidosis without coma Is this a current diagnosis for this admission?: Yes Plan: Was admitted to [facility] on continuous cardiac telemetry. Received insulin GTT and IVF with closing of gap. Symptoms resolved. - Blood sugars remain elevated (200-300s) on Lantus 20U BID - Will increase lantus to 26U BID based on sliding scale coverage received - Continue Accu-Cheks before meals and at bedtime with Humalog for sliding scale coverage. - Consults to registered dietitian, breastfeeding educator, patient navigator, and liaison planner - Consider home health nurse for disease and medication education and management as part of d/c planning (2) DM (diabetes mellitus) type 2, uncontrolled, with ketoacidosis Is this a current diagnosis for this admission?: Yes Plan: Per above. Optimizing glycemic control prior to d/c (3) Hypertension Is this a current diagnosis for this admission?: Yes (4) Morbid obesity with BMI of 40.0-44.9, adult Is this a current diagnosis for this admission?: Yes - Time Time Spent with patient: Less than 15 minutes Anticipated discharge: Home with Homehealth Within: within 24 hours
[2018-05-14] MEDS: NORMAL SALINE 1000 ML 1,000 ML IV PRN ×2 (00:12→06:50)
[2018-05-14 07:13] LABS: ABSOLUTE EOSINOPHILS # (AUTO) 0.1 10^3/uL (0.0-0.6); ABSOLUTE LYMPHOCYTES (AUTO) 1.7 10^3/uL (0.5-4.7); ABSOLUTE MONOCYTES (AUTO) 0.6 10^3/uL (0.1-1.4); ABSOLUTE NEUT (AUTO) 2.4 10^3/uL (1.7-8.2); BASOPHILS % (AUTO) 0.8 % (0-2); EOSINOPHILS % (AUTO) 1.9 % (0-6); HEMATOCRIT 36.7 % (37.9-51.0); HEMOGLOBIN 12.6 g/dL (13.5-17.0); LYMPHOCYTES % (AUTO) 34.6 % (13-45); MEAN CORPUSCULAR HEMOGLOBIN 31.4 pg (27.0-33.4); MEAN CORPUSCULAR HGB CONC 34.2 g/dL (32.0-36.0); MEAN CORPUSCULAR VOLUME 92 fl (80-97); MONOCYTES % (AUTO) 12.8 % (3-13); PLATELET COUNT 319 10^3/uL (150-450); RED CELL DISTRIBUTION WIDTH 12.9 % (11.5-14.0); SEGMENTED NEUTROPHILS % (AUTO) 49.9 % (42-78); TOTAL CELLS COUNTED % (AUTO) 100 %; WHITE BLOOD COUNT 4.8 10^3/uL (4.0-10.5)
[2018-05-14 07:37] LABS: ANION GAP 9 (5-19); BLOOD UREA NITROGEN 12 mg/dL (7-20); CALCIUM 8.8 mg/dL (8.4-10.2); CARBON DIOXIDE 26 mmol/L (22-30); CHLORIDE 104 mmol/L (98-107); GLUCOSE 145 mg/dL (75-110); POTASSIUM 3.6 mmol/L (3.6-5.0); SODIUM 138.8 mmol/L (137-145)
[2018-05-14] MEDS: METOCLOPRAMIDE HCL 10 MG TABLET PO SCH ×2 (08:32→12:50)
[2018-05-14] MEDS: SUCRALFATE SUSP 1 GM/10 ML UDCUP PO SCH ×2 (08:32→12:50)
[2018-05-14] MEDS: FAMOTIDINE 20 MG TABLET PO SCH ×2 (08:32→12:50)
[2018-05-14] MEDS: INSULIN REG, HUMAN 100 UNIT/ML 3 ML VIAL (PYX) SUBCUT SCH ×2 (08:33→12:51)
[2018-05-14] MEDS: DOCUSATE SODIUM 100 MG CAPSULE PO SCH (09:19)
[2018-05-14] MEDS: INSULIN GLARGINE,HUM.REC.ANLOG 1,000 UNIT/10 ML UNIT SUBCUT SCH (09:20)
[2018-05-14] MEDS: LISINOPRIL 5 MG TABLET PO SCH (09:20)
[2018-05-14] MEDS: ENOXAPARIN SODIUM INJ 40 MG/0.4 ML DISP.SYRIN SUBCUT SCH (09:20)
[2018-05-14 13:25] VITALS: BP 125/78
--- NOTE | 2018-05-14 16:30 | PDOC DISCHARGE SUMMARY ---
General - Admit/Disc Date/PCP Admission Date/Primary Care Provider: 05/11/18 20:57 Discharge Date: 05/14/18 - Discharge Diagnosis (1) DKA, type 2 Is this a current diagnosis for this admission?: Yes Summary: Was admitted to [facility] on continuous cardiac telemetry. Received insulin GTT and IVF with closing of gap. Symptoms resolved. - Blood sugars remain elevated (200-300s) on Lantus 20U BID - Increased lantus to 26U BID on 05/13 with improvement in BS at discharge - Consults to registered dietitian, cosmetology educator, patient navigator, and associate financial planner - Consider home health nurse for disease and medication education and management as part of d/c planning (2) DM (diabetes mellitus) type 2, uncontrolled, with ketoacidosis Is this a current diagnosis for this admission?: Yes Summary: At discharge: - Lantus pen ordered (26U BID), 5 pens ordered - Script also given for Lancet (#100) and testing strips (#100) - Will need to make appt with Dr. Guerra for transition - Script also given for Lisinopril and Lipitor (3) Hypertension Is this a current diagnosis for this admission?: Yes Summary: Per above, script given for Lisinopril (4) Morbid obesity with BMI of 40.0-44.9, adult Is this a current diagnosis for this admission?: Yes - Additional Information Resuscitation Status: Full Code Discharge Diet: Cardiac, Diabetic Discharge Activity: Activity As Tolerated Prescriptions: Atorvastatin Calcium [Lipitor 40 mg Tablet] 40 mg PO QHS #30 tablet Insulin Glargine,Hum.rec.anlog [Lantus Insulin 100 Unit/1 ml 10 ml] 26 unit SUBCUT Q12 #5 unit Lisinopril [Prinivil 5 mg Tablet] 10 mg PO DAILY #60 tablet Nicotine [Nicoderm 21 mg/24 Hr Transderm Patch] 1 each TD DAILYP PRN #30 patch.td24 PRN Reason: Home Medications: Aspirin [Ecotrin 81 mg EC Tablet] 81 mg PO DAILY 05/12/18 Metformin HCl [Glucophage 500 mg Tablet] 500 mg PO DAILY 05/12/18 Atorvastatin Calcium [Lipitor 40 mg Tablet] 40 mg PO QHS #30 tablet 05/14/18 Insulin Glargine,Hum.rec.anlog [Lantus Insulin 100 Unit/1 ml 10 ml] 26 unit SUBCUT Q12 #5 unit 05/14/18 Lisinopril [Prinivil 5 mg Tablet] 10 mg PO DAILY #60 tablet 05/14/18 Nicotine [Nicoderm 21 mg/24 Hr Transderm Patch] 1 each TD DAILYP PRN #30 patch.td24 05/14/18 History of Present Illness History of Present Illness: DAVI IVEY is a 48 year old male Hospital Course Hospital Course: DAVI IVEY is a 48 year old male who presented to the emergency room with a several day history of nausea vomiting and epigastric abdominal pain. He admits progressively worsening nausea with vomiting and a moderately severe beco mica severe, constant, dull, aching, epigastric pain without radiation occurring over the last 3 or 4 days. He additionally complains of the associated symptom of urinary frequency without dysuria or hematuria occurring over the same timeframe. He denies having prior similar symptoms and has not identified any aggravating or ameliorating factors for his abdominal pain with nausea and vomiting. He admits that he is a type II diabetic and has not been taking his oral diabetic medication for several months due to financial problems associated with the loss of his job. Because of the worsening of his symptoms especially the increased level of his abdominal pain he presented to the emergency room for evaluation. In the emergency room he was found to have an initial blood sugar of 603, with a pH of 7.2, a bicarbonate of 17, a positive urine ketones and a potassium of 6.1. He was started on insulin drip and IV fluids. His blood sugar had reduced to 385 and he was showing a positive response with improvement in his overall feeling of well-being. He was subsequently admitted to the [facility] for further evaluation and treatment of his acute diabetic ketoacidosis. Physical Exam Vital Signs: Temp Pulse Resp BP Pulse Ox 97.7 F 82 19 125/78 100 05/14/18 13:23 05/14/18 13:23 05/14/18 13:23 05/14/18 13:23 05/14/18 13:23 Intake & Output 05/13/18 05/14/18 05/15/18 06:59 06:59 06:59 Intake Total 3500 4380 Balance 3500 4380 Weight 126.3 kg 127.1 kg General appearance: PRESENT: no acute distress, cooperative, morbidly obese Mouth exam: PRESENT: moist Respiratory exam: PRESENT: clear to auscultation fernandez, unlabored Cardiovascular exam: PRESENT: +S1, +S2. ABSENT: tachycardia GI/Abdominal exam: PRESENT: soft. ABSENT: tenderness Extremities exam: PRESENT: full ROM Musculoskeletal exam: PRESENT: ambulatory Neurological exam: PRESENT: alert, awake, CN II-XII grossly intact Psychiatric exam: PRESENT: flat affect, normal mood, unusual affect Skin exam: PRESENT: dry, intact Results Laboratory Results: 05/14/18 05:48 05/14/18 05:48 05/14/18 05/14/18 05:48 05:48 WBC 4.8 RBC 4.00 L Hgb 12.6 L Hct 36.7 L MCV 92 MCH 31.4 MCHC 34.2 RDW 12.9 Plt Count 319 Seg Neutrophils % 49.9 Lymphocytes % 34.6 Monocytes % 12.8 Eosinophils % 1.9 Basophils % 0.8 Absolute Neutrophils 2.4 Absolute Lymphocytes 1.7 Absolute Monocytes 0.6 Absolute Eosinophils 0.1 Absolute Basophils 0.0 Sodium 138.8 Potassium 3.6 Chloride 104 Carbon Dioxide 26 Anion Gap 9 BUN 12 Creatinine 0.77 Est GFR ( Amer) > 60 Est GFR (Non-Af Amer) > 60 Glucose 145 H Calcium 8.8 Magnesium 1.8 05/11/18 05/11/18 05/12/18 22:15 22:15 05:42 Creatine Kinase 155 CK-MB (CK-2) 3.27 3.06 Troponin I < 0.012 < 0.012 05/12/18 05/12/18 05/12/18 05:42 10:58 10:58 Creatine Kinase 159 157 CK-MB (CK-2) 3.72 Troponin I < 0.012 Impressions: Acute Abdomen Series 05/11/18 11:48 IMPRESSION: NO RADIOGRAPHIC EVIDENCE FOR ACUTE ABDOMINAL DISEASE. Qualifiers - * PATIENT BEING DISCHARGED WITH ANY OF THE FOLLOWING DIAGNOSIS: No Plan Discharge Plan: Follow up with DR. Guerra Time Spent: Greater than 30 Minutes
== END 2018-05-14 13:44 | disposition home or self-care (01) | DRG 638 ==
LOC: ER 10:06 → EH 20:57 → 3S 05-12 03:31
PROVIDERS: ADMIT Emergency Medicine; ATTEND Emergency Medicine
PROC: 3E0234Z Introduction of Serum, Toxoid and Vaccine into Muscle, Percutaneous Approach (ICD-10-PCS; principal; 2018-05-14)
DX: E11.10 Type 2 diabetes mellitus with ketoacidosis without coma (principal); Z68.41 Body mass index [BMI] 40.0-44.9, adult; I10 Essential (primary) hypertension; E66.01 Morbid (severe) obesity due to excess calories; Z91.14 Patient's other noncompliance with medication regimen; Z23 Encounter for immunization; Z59.8 Other problems related to housing and economic circumstances
CPT/HCPCS: 36415; 74022; 80048; 80053; 80061; 80307; 81001; 82150; 82550; 82553; 82803; 82962; 83036; 83690; 83735; 84439; 84443; 84481; 84484; 85025; 90686; 93005; 93010; J0610; J1650; J1815; J1940; J3480; J3490; J7030; S0028

== ENCOUNTER 2018-07-05 21:34 | Inpatient (IN) | payer OTHER ==
[2018-07-05] MEDS ORDERED: NORMAL SALINE 1000 ML 1,000 ML IV ONE (21:56)
--- NOTE | 2018-07-05 21:58 | ER Document Report ---
ED Medical Screen (RME) - General Chief Complaint: Chest Pain > 30 Stated Complaint: CHEST PAIN Time Seen by Provider: 07/05/18 21:52 Notes: Patient is a 48-year-old male presents to the emergency department for sugars reading over 500 as well as chest pain. Patient states he has generalized chest pain and heaviness for the last 2 hours. States he had to buy insulin online which he "does not think is working." Patient's blood sugar in triage was 321. HEART: Tachycardic rate and rhythm. No murmur ABDOMEN: Soft, non-tender. Non-distended. Bowel sounds present in all 4 quadrants. SKIN: Warm, diaphoretic, normal turgor. No rashes or lesions noted. I have greeted and performed a rapid initial assessment of this patient. A comprehensive ED assessment and evaluation of the patient, analysis of test results and completion of the medical decision making process will be conducted by additional ED providers. TRAVEL OUTSIDE OF THE [place] IN LAST 30 DAYS: No - Related Data Allergies/Adverse Reactions: No Known Allergies Allergy (Unverified 05/11/18 10:17) Past Medical History - Past Medical History Cardiac Medical History: Denies: Hx Coronary Artery Disease, Hx Hypertension, Hx Peripheral Vascular Disease Pulmonary Medical History: Denies: Hx Asthma, Hx COPD Neurological Medical History: Denies: Hx Seizures Endocrine Medical History: Reports: Hx Diabetes Mellitus Type 2. Denies: Hx Diabetes Mellitus Type 1, Hx Hyperthyroidism, Hx Hypothyroidism Renal/ Medical History: Denies: Hx Peritoneal Dialysis GI Medical History: Denies: Hx Cirrhosis, Hx Hepatitis Musculoskeltal Medical History: Denies Hx Arthritis, Denies Hx Gout Skin Medical History: Denies Hx Eczema, Denies Hx Psoriasis Psychiatric Medical History: Denies: Hx Depression Infectious Medical History: Denies: Hx Hepatitis Physical Exam - Vital signs Vitals: Temp Pulse Resp BP Pulse Ox 97.4 F 114 H 20 142/99 H 100 07/05/18 21:46 07/05/18 21:46 07/05/18 21:46 07/05/18 21:46 07/05/18 21:46 Course - Vital Signs Vital signs: Temp Pulse Resp BP Pulse Ox 97.4 F 114 H 20 142/99 H 100 07/05/18 21:46 07/05/18 21:46 07/05/18 21:46 07/05/18 21:46 07/05/18 21:46
--- NOTE | 2018-07-05 22:27 | RADIOLOGY REPORT (SQ) ---
EXAM DESCRIPTION: XR CHEST 1 VIEW COMPLETED DATE/TME: 07/05/2018 21:57 CLINICAL HISTORY: 48 years, Male, CP COMPARISON: 05/11/2018 chest NUMBER OF VIEWS: 1 TECHNIQUE: Portable chest LIMITATIONS: None. FINDINGS: Heart size is normal. Lungs are clear. No pneumothorax IMPRESSION: Negative chest copyright 2010 [facility]- All Rights Reserved
[2018-07-05 22:47] LABS: ABSOLUTE LYMPHOCYTES (AUTO) 0.7 10^3/uL (0.5-4.7); ABSOLUTE MONOCYTES (AUTO) 0.5 10^3/uL (0.1-1.4); BASOPHILS % (AUTO) 0.3 % (0-2); HEMATOCRIT 44.9 % (37.9-51.0); HEMOGLOBIN 15.6 g/dL (13.5-17.0); LYMPHOCYTES % (AUTO) 6.4 % (13-45); MEAN CORPUSCULAR HEMOGLOBIN 32.5 pg (27.0-33.4); MEAN CORPUSCULAR HGB CONC 34.7 g/dL (32.0-36.0); MEAN CORPUSCULAR VOLUME 94 fl (80-97); MONOCYTES % (AUTO) 5.3 % (3-13); PLATELET COUNT 387 10^3/uL (150-450); RED BLOOD COUNT 4.79 10^6/uL (4.35-5.55); RED CELL DISTRIBUTION WIDTH 12.7 % (11.5-14.0); TOTAL CELLS COUNTED % (AUTO) 100 %; WHITE BLOOD COUNT 10.3 10^3/uL (4.0-10.5)
[2018-07-05 23:06] LABS: ALANINE AMINOTRANSFERASE 26 U/L (21-72); ALKALINE PHOSPHATASE 98 U/L (38-126); ASPARTATE AMINO TRANSFERASE 16 U/L (17-59); BILIRUBIN,DIRECT 0.9 mg/dL (0.0-0.4); BILIRUBIN,TOTAL 2.9 mg/dL (0.2-1.3); BLOOD UREA NITROGEN 25 mg/dL (7-20); CALCIUM 10.1 mg/dL (8.4-10.2); CHLORIDE 92 mmol/L (98-107); GLUCOSE 362 mg/dL (75-110); POTASSIUM 4.6 mmol/L (3.6-5.0); TOTAL PROTEIN 8.7 g/dL (6.3-8.2)
[2018-07-05 23:11] LABS: SODIUM 127.8 mmol/L (137-145)
[2018-07-05 23:12] LABS: ANION GAP 26 (5-19)
[2018-07-05 23:14] LABS: CARBON DIOXIDE 10 mmol/L (22-30)
[2018-07-05 23:53] LABS: APPEARANCE,URINE CLEAR; BILIRUBIN,URINE NEGATIVE (NEGATIVE); COLOR,URINE YELLOW; GLUCOSE, URINE >=500 mg/dL (NEGATIVE); KETONES,URINE 80 mg/dL (NEGATIVE); LEUKOCYTE ESTERASE,URINE NEGATIVE (NEGATIVE); NITRITE,URINE NEGATIVE (NEGATIVE); PROTEIN,URINE NEGATIVE (NEGATIVE); URINE SPECIFIC GRAVITY 1.023; UROBILINOGEN,URINE NEGATIVE mg/dL (<2.0)
[2018-07-06 00:04] LABS: VENOUS BLOOD BASE EXCESS -12.1 mmol/L; VENOUS BLOOD HCO3 15.5 mmol/L (20-32); VENOUS BLOOD PCO2 41.5 mmHg (35-63)
--- NOTE | 2018-07-06 00:05 | ER Document Report ---
ED Cardiac - General Chief Complaint: Chest Pain > 30 Stated Complaint: CHEST PAIN Time Seen by Provider: 07/05/18 23:41 Mode of Arrival: Ambulatory Information source: Patient Notes: HISTORY OF PRESENT ILLNESS: Patient is a 48-year-old male with a past medical history of diabetes who presents with chest pain and hyperglycemia that occurred today prior to arrival. Patient reports that he is out of his Lantus and has been unable to get back to his physician for a refill. He then states that he bought "Novo[employer] on the Internet." Location: Chest Onset: Gradual prior to arrival Alleviation: None Provocation: Hyperglycemia Quality: Aching Radiation: None Severity: Moderate Timing: Constant History of CAD: None Associated symptoms: No fevers or chills, no cough or congestion, no vomiting or diarrhea REVIEW OF SYSTEMS: CONSTITUTIONAL : Denies fever or chills, no sweats. Denies recent illness. EENT: Denies eye, ear, throat, or mouth pain or symptoms. Denies nasal or sinus congestion. CARDIOVASCULAR: Positive for chest pain. Denies swelling of the legs. RESPIRATORY: Denies cough, cold, or chest congestion. Denies shortness of breath or difficulty breathing. Denies wheezing. GASTROINTESTINAL: Denies abdominal pain. Denies nausea, vomiting, or diarrhea. Denies constipation. GENITOURINARY: Denies difficulty urinating, painful urination, burning, frequency, or blood in urine. MUSCULOSKELETAL: Denies neck or back pain or joint pain or swelling. SKIN: Denies rash or skin lesions. HEMATOLOGIC : Denies easy bruising or bleeding. LYMPHATIC: Denies swollen, enlarged glands. NEUROLOGICAL: Denies altered mental status or loss of consciousness. Denies headache. Denies weakness or paralysis or loss of use of either side. Denies problems with gait or speech. Denies sensory or motor loss. PSYCHIATRIC: Denies anxiety or stress or depression. All other systems reviewed and negative. PHYSICAL EXAMINATION: GENERAL: Weak and tired-appearing, well-nourished and in mild acute distress. HEAD: Atraumatic, normocephalic. No scalp deformity, depression, or crepitance. EYES: Pupils are 3 mm and equal/round/reactive to light, extraocular movements intact, sclera anicteric, conjunctiva are normal. ENT: Nares patent bilaterally, oropharynx. Moist mucous membranes. No tonsil hypertrophy. NECK: Normal range of motion, supple without lymphadenopathy. LUNGS: Breath sounds present, equal, and clear to auscultation bilaterally. No wheezes, rales, or rhonchi. HEART: Regular rate and rhythm without murmurs, rubs, or gallops. 2+ peripheral pulses. Normal capillary refill. ABDOMEN: Soft without distention, mild diffuse abdominal tenderness without localization. Normoactive bowel sounds. No guarding, no rebound. No masses appreciated. BACK: Normal contour, no midline tenderness. Rectal exam deferred. GENITAL/PELVIC: Deferred. EXTREMITIES: Normal range of motion, no pitting or edema. No cyanosis. NEUROLOGICAL: No focal neurological deficits. Moves all extremities spontaneously and on command. PSYCH: Normal mood, normal affect. No suicidal thoughts/ideations. No homocidal thoughts/ideations. No hallucinations. SKIN: Warm, dry, normal turgor, no rashes or lesions noted. ASSESSMENT AND PLAN: This patient is a 48-year-old male who presents with chest pain and hyperglycemia that could represent acute RI versus DKA versus symptomatic hyperglycemia versus dehydration. 1. Will obtain labs, urine, cardiac panel, VBG, give IV fluids with insulin, and reassess. 2. Will consider admission. TRAVEL OUTSIDE OF THE [place] IN LAST 30 DAYS: No - Related Data Allergies/Adverse Reactions: No Known Allergies Allergy (Unverified 05/11/18 10:17) Past Medical History - General Information source: Patient - Social History Smoking Status: Unknown if Ever Smoked Chew tobacco use (# tins/day): No Frequency of alcohol use: None Drug Abuse: None Lives with: Alone Family History: CAD, DM, Hypertension, Malignancy, Other - Heart failure Patient has suicidal ideation: No Patient has homicidal ideation: No - Past Medical History Cardiac Medical History: Reports: None Denies: Hx Coronary Artery Disease, Hx Hypertension, Hx Peripheral Vascular Disease Pulmonary Medical History: Reports: None Denies: Hx Asthma, Hx COPD EENT Medical History: Reports: None Neurological Medical History: Reports: None. Denies: Hx Seizures Endocrine Medical History: Reports: Hx Diabetes Mellitus Type 2. Denies: Hx Diabetes Mellitus Type 1, Hx Hyperthyroidism, Hx Hypothyroidism Renal/ Medical History: Reports: None. Denies: Hx Peritoneal Dialysis Malignancy Medical History: Reports None GI Medical History: Reports: None. Denies: Hx Cirrhosis, Hx Hepatitis Musculoskeletal Medical History: Reports None, Denies Hx Arthritis, Denies Hx Gout Skin Medical History: Reports None, Denies Hx Eczema, Denies Hx Psoriasis Psychiatric Medical History: Reports: None Denies: Hx Depression Traumatic Medical History: Reports: None Infectious Medical History: Reports: None. Denies: Hx Hepatitis Surgical Hx: Negative Past Surgical History: Reports: None - Immunizations History of Influenza Vaccine for 01/2017 - 06/2017 Season: Unknown Physical Exam - Vital signs Vitals: Temp Pulse Resp BP Pulse Ox 97.4 F 114 H 20 142/99 H 100 07/05/18 21:46 07/05/18 21:46 07/05/18 21:46 07/05/18 21:46 07/05/18 21:46 Course - Re-evaluation Re-evalutation: 07/06/18 02:50 Patient does have evidence of acute DKA so will be started on insulin drip, will be given boluses of normal saline as well as lactated Ringer's, and will be admitted to the hospital. Cardiac enzymes are negative. - Vital Signs Vital signs: Temp Pulse Resp BP Pulse Ox 97.9 F 114 H 22 H 114/67 100 07/06/18 04:12 07/05/18 21:46 07/06/18 04:01 07/06/18 04:01 07/06/18 04:01 - Laboratory Result Diagrams: 07/05/18 22:38 07/06/18 03:20 Laboratory results interpreted by me: 07/05/18 07/05/18 07/05/18 21:55 22:38 22:38 Seg Neutrophils % 88.0 H Lymphocytes % 6.4 L Absolute Neutrophils 9.0 H VBG pH VBG HCO3 Sodium 127.8 L Chloride 92 L Carbon Dioxide 10 L* Anion Gap 26 H BUN 25 H Glucose 362 H POC Glucose 321 H Total Bilirubin 2.9 H Direct Bilirubin 0.9 H AST 16 L Total Protein 8.7 H Urine Glucose (UA) Urine Ketones 07/05/18 07/05/18 07/06/18 23:15 23:50 00:53 Seg Neutrophils % Lymphocytes % Absolute Neutrophils VBG pH 7.19 L* VBG HCO3 15.5 L Sodium Chloride Carbon Dioxide Anion Gap BUN Glucose POC Glucose 287 H Total Bilirubin Direct Bilirubin AST Total Protein Urine Glucose (UA) >=500 H Urine Ketones 80 H 07/06/18 02:03 Seg Neutrophils % Lymphocytes % Absolute Neutrophils VBG pH VBG HCO3 Sodium Chloride Carbon Dioxide Anion Gap BUN Glucose POC Glucose 250 H Total Bilirubin Direct Bilirubin AST Total Protein Urine Glucose (UA) Urine Ketones - Diagnostic Test Radiology reviewed: Image reviewed, Reports reviewed - EKG Interpretation by Me EKG shows normal: Sinus rhythm Rate: Normal Rhythm: NSR [place]/QRS: No: Right axis deviation, Left axis deviation, RBBB, LBBB, IVCD, LAHB/LAFB, LPHB/LPFB, Bifasicular block Voltage: No: Increased voltage, Consistant with LVH, Decreased voltage, Thr oughout, Limb leads P Waves: No: LARRY, LAE, Absent, AV Dissociation, Other Heart block present: No: 1st Degree, Mobitz 1, Mobitz 2, CHB (3rd degree block) When compared to previous EKG there are: No significant change - Consults Dr. Magallanes Time consulted: 03:00 - will admit Consulted provider: will come to ER Critical Care Note - Critical Care Note Total time excluding time spent on procedures (mins): 120 Comments: Critical care time spent obtaining history from patient or surrogate, discussions with consultants, development of treatment plan with patient or surrogate, evaluation of patient's response to treatment, examination of patient, ordering and performing treatments and interventions, ordering and review of laboratory studies, re-evaluation of patient's condition, ordering and review of radiographic studies and review of old charts. Discharge - Discharge Clinical Impression: Dehydration Chest pain Qualifiers: Chest pain type: unspecified Qualified Code(s): R07.9 - Chest pain, unspecified Diabetic ketoacidosis Qualifiers: Diabetes mellitus type: other specified (including RUTHANN) Diabetes mellitus complication detail: without coma Qualified Code(s): E13.10 - Other specified diabetes mellitus with ketoacidosis without coma Condition: Stable Disposition: ADMITTED INPATIENT Admitting Provider: Hospitalist Unit Admitted: [facility]
[2018-07-06] MEDS ORDERED: NORMAL SALINE 1000 ML 1,000 ML IV ONE (00:13)
[2018-07-06] MEDS ORDERED: INSULIN REG, HUMAN 100 UNIT/ML 3 ML VIAL (PYX) IV ONE (00:13)
[2018-07-06] MEDS ORDERED: NORMAL SALINE 100 ML with INSULIN REGULAR, HUMAN 100 UNIT IV PRN ×2 (00:15)
[2018-07-06] MEDS ORDERED: DEXTROSE 50%-WATER 25 GM/50 ML DISP.SYRIN IV PRN ×2 (00:15)
[2018-07-06] MEDS ORDERED: DEXTROSE 40% GEL 15 GM TUBE PO PRN ×2 (00:15)
[2018-07-06] MEDS ORDERED: GLUCAGON,HUMAN RECOMB 1 MG INJ IM PRN (00:15)
[2018-07-06] MEDS ORDERED: RINGERS SOLUTION,LACTATED 1,000 ML IV ONE (00:28)
[2018-07-06] MEDS ORDERED: INSULIN REG, HUMAN 100 UNIT/ML 3 ML VIAL (PYX) ONE (00:39)
[2018-07-06] MEDS ORDERED: NORMAL SALINE 1000 ML 1,000 ML IV PRN ×2 (03:03→03:43)
[2018-07-06 03:33] LABS: VENOUS BLOOD BASE EXCESS -9.9 mmol/L; VENOUS BLOOD HCO3 17.4 mmol/L (20-32); VENOUS BLOOD PCO2 42.8 mmHg (35-63); VENOUS BLOOD PH 7.23 (7.30-7.42)
[2018-07-06 03:35] LABS: INTERNATIONAL RATION (INR) 0.97; PROTHROMBIN TIME 13.3 SEC (11.4-15.4)
[2018-07-06 03:49] LABS: ALANINE AMINOTRANSFERASE 21 U/L (21-72); ALBUMIN 4.1 g/dL (3.5-5.0); ALKALINE PHOSPHATASE 72 U/L (38-126); ANION GAP 17 (5-19); ASPARTATE AMINO TRANSFERASE 16 U/L (17-59); BILIRUBIN,DIRECT 0.6 mg/dL (0.0-0.4); BILIRUBIN,TOTAL 2.6 mg/dL (0.2-1.3); BLOOD UREA NITROGEN 21 mg/dL (7-20); CALCIUM 9.2 mg/dL (8.4-10.2); CARBON DIOXIDE 15 mmol/L (22-30); CHLORIDE 103 mmol/L (98-107); GLUCOSE 98 mg/dL (75-110); LIPASE 83.4 U/L (23-300); PARTIAL THROMBOPLASTIN TIME 20.1 SEC (23.5-35.8); POTASSIUM 4.2 mmol/L (3.6-5.0); SODIUM 134.5 mmol/L (137-145); TOTAL PROTEIN 7.3 g/dL (6.3-8.2)
--- NOTE | 2018-07-06 04:39 | PDOC H&P ---
History of Present Illness Admission Date/PCP: 07/06/18 03:13 Patient complains of: weakness and chest pain History of Present Illness: DAVI IVEY is a 48 year old man with uncontrolled type 2 diabetes, lives [place], has not been able to afford his lantus and so bought novolin/regular insulin and he said that he just hasnt been able to control his blood glucose. Has felt weaker over past few days, came in today with chest pain, that is now resolved. One episode of non bloody emesis last night. No dyspnea, no bleeding, no abd pain, no dysuria, no falls or trauma. Admitted to [facility] with DKA. Past Medical History Cardiac Medical History: Reports: Hyperlipidema, Hypertension Denies: Coronary Artery Disease, Peripheral Vascular Disease Pulmonary Medical History: Denies: Asthma, Chronic Obstructive Pulmonary Disease (COPD) EENT Medical History: Reports: None Neurological Medical History: Denies: Ischemic CVA, Seizures Endocrine Medical History: Reports: Diabetes Mellitus Type 2 Denies: Diabetes Mellitus Type 1, Hyperthyroidism, Hypothyroidism Renal/ Medical History: Denies: End Stage Renal Disease GI Medical History: Denies: Cirrhosis, Hepatitis Musculoskeltal Medical History: Denies: Arthritis, Gout Skin Medical History: Denies: Eczema, Psoriasis Psychiatric Medical History: Denies: Alcohol Dependency, Depression, Substance Abuse, Tobacco Dependency Hematology: Denies: Anemia, Bleeding Tendencies Infectious Medical History: Reports: None Past Surgical History Past Surgical History: Reports: None Social History Information Source: Patient, [facility] Records Lives with: Alone Smoking Status: Former Smoker - uses 21 mcg patch Frequency of Alcohol Use: None Hx Recreational Drug Use: No Drugs: None Hx Prescription Drug Abuse: No Past Social History Note: From [facility] for 14 years. Unemployed. No family nearby. - Advance Directive Resuscitation Status: Full Code Surrogate healthcare decision maker:: he cannot nema one and states that he would want physicians to make decisons for him. I asked him to think about someone in his life that he trusts that could make decisons for him if needed. Family History Family History: CAD, DM, Hypertension, Malignancy, Other - Heart failure Parental Family History Reviewed: Yes - father also has DM, ?type Children Family History Reviewed: NA Sibling(s) Family History Reviewed.: Yes Medication/Allergy Home Medications: Aspirin [Ecotrin 81 mg EC Tablet] 81 mg PO DAILY 05/12/18 Metformin HCl [Glucophage 500 mg Tablet] 500 mg PO DAILY 05/12/18 Atorvastatin Calcium [Lipitor 40 mg Tablet] 40 mg PO QHS #30 tablet 05/14/18 Insulin Glargine,Hum.rec.anlog [Lantus (Pyxis) Insulin 100 Unit/1 ml 10 ml] 26 unit SUBCUT Q12 #5 unit 05/14/18 Lisinopril [Prinivil 5 mg Tablet] 10 mg PO DAILY #60 tablet 05/14/18 Nicotine [Nicoderm 21 mg/24 Hr Transderm Patch] 1 each TD DAILYP PRN #30 patch.td24 05/14/18 Allergies/Adverse Reactions: No Known Allergies Allergy (Unverified 05/11/18 10:17) Review of Systems Constitutional: PRESENT: fatigue. ABSENT: anorexia, headache(s) Eyes: ABSENT: visual disturbances Ears: ABSENT: hearing changes Nose, Mouth, and Throat: ABSENT: headache(s), mouth pain, sore throat Cardiovascular: PRESENT: chest pain. ABSENT: dyspnea on exertion, edema, orthropnea, palpitations Respiratory: ABSENT: cough, dyspnea Gastrointestinal: PRESENT: vomiting. ABSENT: abdominal pain, coffee ground emesis, constipation, diarrhea, nausea Genitourinary: ABSENT: dysuria Musculoskeletal: ABSENT: deformity, joint swelling Neurological: ABSENT: abnormal gait, convulsions, syncope Psychiatric: ABSENT: anxiety Hematologic/Lymphatic: ABSENT: easy bleeding, easy bruising Physical Exam Vital Signs: Temp Pulse Resp BP Pulse Ox 97.9 F 114 H 22 H 114/67 100 07/06/18 04:12 07/05/18 21:46 07/06/18 04:01 07/06/18 04:01 07/06/18 04:01 Intake & Output 07/04/18 07/05/18 07/06/18 06:59 06:59 06:59 Intake Total 3031 Balance 3031 Weight 115.3 kg General appearance: PRESENT: no acute distress, cooperative, well-developed, well-nourished Head exam: PRESENT: atraumatic, normocephalic Eye exam: ABSENT: conjunctival injection, scleral icterus Ear exam: PRESENT: normal external ear exam. ABSENT: bleeding Mouth exam: PRESENT: moist, neck supple, tongue midline Throat exam: ABSENT: tonsillar exudate Neck exam: ABSENT: tenderness, tracheal deviation Respiratory exam: PRESENT: clear to auscultation fernandez, unlabored. ABSENT: accessory muscle use, decreased breath sounds, rales, rhonchi, wheezes Cardiovascular exam: PRESENT: RRR Pulses: PRESENT: normal radial pulses, normal dorsalis pedis pul GI/Abdominal exam: PRESENT: normal bowel sounds, soft. ABSENT: distended, guarding, tenderness Rectal exam: PRESENT: deferred Extremities exam: ABSENT: joint swelling, pedal edema, tenderness Musculoskeletal exam: PRESENT: ambulatory, normal inspection. ABSENT: deformity Neurological exam: PRESENT: alert, awake, oriented to person, oriented to place, oriented to situation, CN II-XII grossly intact Psychiatric exam: PRESENT: flat affect. ABSENT: anxious Skin exam: PRESENT: dry, intact, other - onychomycosis, no open lesions Results Laboratory Results: 07/05/18 22:38 07/06/18 03:20 07/05/18 07/05/18 07/05/18 22:38 22:38 23:15 WBC 10.3 RBC 4.79 Hgb 15.6 Hct 44.9 MCV 94 MCH 32.5 MCHC 34.7 RDW 12.7 Plt Count 387 Seg Neutrophils % 88.0 H Lymphocytes % 6.4 L Monocytes % 5.3 Eosinophils % 0.0 Basophils % 0.3 Absolute Neutrophils 9.0 H Absolute Lymphocytes 0.7 Absolute Monocytes 0.5 Absolute Eosinophils 0.0 Absolute Basophils 0.0 VBG pH VBG pCO2 VBG HCO3 VBG Base Excess Sodium 127.8 L Potassium 4.6 Chloride 92 L Carbon Dioxide 10 L* Anion Gap 26 H BUN 25 H Creatinine 1.03 Est GFR ( Amer) > 60 Est GFR (Non-Af Amer) > 60 Glucose 362 H Calcium 10.1 Total Bilirubin 2.9 H AST 16 L ALT 26 Alkaline Phosphatase 98 Total Protein 8.7 H Albumin 5.0 Lipase Urine Color YELLOW Urine Appearance CLEAR Urine pH 5.0 Ur Specific Somis 1.023 Urine Protein NEGATIVE Urine Glucose (UA) >=500 H Urine Ketones 80 H Urine Blood NEGATIVE Urine Nitrite NEGATIVE Ur Leukocyte Esterase NEGATIVE Urine WBC (Auto) 1 Urine RBC (Auto) 0 07/05/18 07/06/18 07/06/18 23:50 02:50 02:50 WBC RBC Hgb Hct MCV MCH MCHC RDW Plt Count Seg Neutrophils % Lymphocytes % Monocytes % Eosinophils % Basophils % Absolute Neutrophils Absolute Lymphocytes Absolute Monocytes Absolute Eosinophils Absolute Basophils VBG pH 7.19 L* VBG pCO2 41.5 VBG HCO3 15.5 L VBG Base Excess -12.1 Sodium Cancelled Potassium Cancelled Chloride Cancelled Carbon Dioxide Cancelled Anion Gap Cancelled BUN Cancelled Creatinine Cancelled Est GFR ( Amer) Cancelled Est GFR (Non-Af Amer) Cancelled Glucose Cancelled Calcium Cancelled Total Bilirubin Cancelled AST Cancelled ALT Cancelled Alkaline Phosphatase Cancelled Total Protein Cancelled Albumin Cancelled Lipase Cancelled Urine Color Urine Appearance Urine pH Ur Specific Somis Urine Protein Urine Glucose (UA) Urine Ketones Urine Blood Urine Nitrite Ur Leukocyte Esterase Urine WBC (Auto) Urine RBC (Auto) 07/06/18 07/06/18 03:20 03:25 WBC RBC Hgb Hct MCV MCH MCHC RDW Plt Count Seg Neutrophils % Lymphocytes % Monocytes % Eosinophils % Basophils % Absolute Neutrophils Absolute Lymphocytes Absolute Monocytes Absolute Eosinophils Absolute Basophils VBG pH 7.23 L VBG pCO2 42.8 VBG HCO3 17.4 L VBG Base Excess -9.9 Sodium 134.5 L Potassium 4.2 Chloride 103 Carbon Dioxide 15 L Anion Gap 17 BUN 21 H Creatinine 0.87 Est GFR ( Amer) > 60 Est GFR (Non-Af Amer) > 60 Glucose 98 Calcium 9.2 Total Bilirubin 2.6 H AST 16 L ALT 21 Alkaline Phosphatase 72 Total Protein 7.3 Albumin 4.1 Lipase 83.4 Urine Color Urine Appearance Urine pH Ur Specific Somis Urine Protein Urine Glucose (UA) Urine Ketones Urine Blood Urine Nitrite Ur Leukocyte Esterase Urine WBC (Auto) Urine RBC (Auto) 07/05/18 07/06/18 22:38 03:20 Troponin I < 0.012 < 0.012 Impressions: Chest X-Ray 07/05/18 21:57 IMPRESSION: Negative chest copyright 2010 [facility]- All Rights Reserved Assessment and Plan - Diagnosis (1) DKA, type 2 Qualifiers: Diabetes mellitus remote computer terminal operator insulin use: without remote computer terminal operator use Diabetes mellitus complication detail: without coma Qualified Code(s): E11.10 - Type 2 diabetes mellitus with ketoacidosis without coma Is this a current diagnosis for this admission?: Yes Plan: Prob due to insufficient insulin use, due to inability to afford. HAd CP and t rop x 1 neg, another pending. Lipas pending, cultures pnding-all to eval for possible occult source of DKA. pH has improved from 7.1 to 7.2 wtih IV fluids and insulin. Cont insulin gtt and NS at 200mL per hour, await transtion to D51/2NS and SSI.diet. Anticipate that within a few hours. BMP 2 4 hours. community health educator and SW consult ordered. (2) Diabetic ketoacidosis Qualifiers: Diabetes mellitus type: type 2 Diabetes mellitus complication detail: without coma Qualified Code(s): E11.10 - Type 2 diabetes mellitus with ketoacidosis without coma Is this a current diagnosis for this admission?: Yes Plan: pt states he is on lantus and cant afford it. states he no longer takes metformin. SW and diabetic ed ordered. Diabetic diet once taking po. (3) Hyperlipidemia Is this a current diagnosis for this admission?: Yes Plan: cont statin (4) Hypertension Is this a current diagnosis for this admission?: Yes Plan: cont lisinoptil, q4hrs vitals - Inpatient Certification Based on my medical assessment, after consideration of the patient's comorbidities, presenting symptoms, or acuity I expect that the services needed warrant INPATIENT care.: Yes I certify that my determination is in accordance with my understanding of Medicare's requirements for reasonable and necessary INPATIENT services [42 CFR 412.3e].: Yes Medical Necessity: Need For IV Fluids, Risk of Complication if Not Cared For in Hospital, Risk of Diagnosis Which Will Require Inpatient Eval/Care/Monitoring - Plan Summary Plan Summary: FUll code, HCPOA-none named and asked for doctors to make med decisions if he cannot, I asked him to think about it. DVT prophylaxis heparin 5000 sq q8hrs
[2018-07-06 04:44] LABS: URINE AMPHETAMINES SCREEN NEGATIVE; URINE BARBITURATES SCREEN NEGATIVE; URINE BENZODIAZEPINES SCREEN NEGATIVE; URINE COCAINE SCREEN NEGATIVE; URINE METHADONE SCREEN NEGATIVE; URINE PHENCYCLIDINE SCREEN NEGATIVE
[2018-07-06 04:55] LABS: URINE MARIJUANA (THC) SCREEN NEGATIVE
[2018-07-06] MEDS ORDERED: NITROGLYCERIN 0.4 MG/TAB 25 TAB/BOTTLE SL PRN (05:53)
[2018-07-06] MEDS ORDERED: NITROGLYCERIN 0.4 MG/TAB 25 TAB/BOTTLE ONE (05:58)
[2018-07-06] MEDS: HEPARIN SOD (PORCINE) 5,000 UNIT/ML 1 ML SYRINGE SUBCUT SCH ×3 (06:01→21:27)
[2018-07-06] MEDS: PANTOPRAZOLE SODIUM 40 MG TABLET.DR PO SCH (06:01)
[2018-07-06 07:37] LABS: VENOUS BLOOD PH 7.19 (7.30-7.42)
[2018-07-06 07:45] LABS: ANION GAP 13 (5-19); BLOOD UREA NITROGEN 17 mg/dL (7-20); CALCIUM 8.5 mg/dL (8.4-10.2); CARBON DIOXIDE 18 mmol/L (22-30); CHLORIDE 101 mmol/L (98-107); GLUCOSE 107 mg/dL (75-110); POTASSIUM 3.7 mmol/L (3.6-5.0)
--- NOTE | 2018-07-06 07:58 | EKG REPORT ---
SEVERITY:- BORDERLINE ECG - SINUS RHYTHM BORDERLINE T ABNORMALITIES, LATERAL LEADS BORDERLINE PROLONGED QT INTERVAL : Confirmed by: Олег Fajardo MD 06-Jul-2018 07:57:31
--- NOTE | 2018-07-06 07:58 | EKG REPORT ---
SEVERITY:- ABNORMAL ECG - SINUS TACHYCARDIA NONSPECIFIC T ABNORMALITIES, LATERAL LEADS PROLONGED QT INTERVAL : Confirmed by: Олег Fajardo MD 06-Jul-2018 07:57:47
[2018-07-06] MEDS: POTASSI CL 20 MEQ/D5-1/2NS 1L 1000 ML IV PRN ×2 (09:14→14:28)
[2018-07-06] MEDS: ACETAMINOPHEN 325 MG TABLET PO PRN ×2 (11:09→23:58)
--- NOTE | 2018-07-06 17:57 | PDOC PROGRESS REPORT ---
Subjective Progress Note for:: 07/06/18 Subjective:: No adverse events overnight. No new complaints. He said he got a little bit of a headache this morning but he otherwise feels fine. No nausea or vomiting. No diarrhea. Reason For Visit: DIABETIC KETOACIDOSIS Physical Exam Vital Signs: Temp Pulse Resp BP Pulse Ox 98.0 F 81 18 120/56 L 100 07/06/18 15:15 07/06/18 15:15 07/06/18 15:15 07/06/18 15:15 07/06/18 15:15 Intake & Output 07/05/18 07/06/18 07/07/18 06:59 06:59 06:59 Intake Total 3052 2270 Balance 3052 2270 Weight 114.9 kg General appearance: PRESENT: no acute distress, cooperative, disheveled Respiratory exam: PRESENT: clear to auscultation fernandez, symmetrical, unlabored. ABSENT: accessory muscle use, crackles, prolonged expiratory phas, rhonchi, tachypnea, wheezes Cardiovascular exam: PRESENT: RRR, +S1, +S2 Pulses: PRESENT: normal carotid pulses Vascular exam: PRESENT: normal capillary refill GI/Abdominal exam: PRESENT: normal bowel sounds, soft. ABSENT: distended, guarding, rebound, tenderness Extremities exam: ABSENT: clubbing, pedal edema Musculoskeletal exam: PRESENT: normal inspection. ABSENT: deformity Neurological exam: PRESENT: alert, awake, oriented to person, oriented to place, oriented to time, oriented to situation Psychiatric exam: PRESENT: flat affect Skin exam: PRESENT: dry, warm Results Laboratory Results: 07/05/18 22:38 07/06/18 07:15 07/05/18 07/05/18 07/05/18 22:38 22:38 23:15 WBC 10.3 RBC 4.79 Hgb 15.6 Hct 44.9 MCV 94 MCH 32.5 MCHC 34.7 RDW 12.7 Plt Count 387 Seg Neutrophils % 88.0 H Lymphocytes % 6.4 L Monocytes % 5.3 Eosinophils % 0.0 Basophils % 0.3 Absolute Neutrophils 9.0 H Absolute Lymphocytes 0.7 Absolute Monocytes 0.5 Absolute Eosinophils 0.0 Absolute Basophils 0.0 VBG pH VBG pCO2 VBG HCO3 VBG Base Excess Sodium 127.8 L Potassium 4.6 Chloride 92 L Carbon Dioxide 10 L* Anion Gap 26 H BUN 25 H Creatinine 1.03 Est GFR ( Amer) > 60 Est GFR (Non-Af Amer) > 60 Glucose 362 H Calcium 10.1 Total Bilirubin 2.9 H AST 16 L ALT 26 Alkaline Phosphatase 98 Total Protein 8.7 H Albumin 5.0 Lipase Urine Color YELLOW Urine Appearance CLEAR Urine pH 5.0 Ur Specific Ho[place] 1.023 Urine Protein NEGATIVE Urine Glucose (UA) >=500 H Urine Ketones 80 H Urine Blood NEGATIVE Urine Nitrite NEGATIVE Ur Leukocyte Esterase NEGATIVE Urine WBC (Auto) 1 Urine RBC (Auto) 0 07/05/18 07/06/18 07/06/18 23:50 02:50 02:50 WBC RBC Hgb Hct MCV MCH MCHC RDW Plt Count Seg Neutrophils % Lymphocytes % Monocytes % Eosinophils % Basophils % Absolute Neutrophils Absolute Lymphocytes Absolute Monocytes Absolute Eosinophils Absolute Basophils VBG pH 7.19 L* VBG pCO2 41.5 VBG HCO3 15.5 L VBG Base Excess -12.1 Sodium Cancelled Potassium Cancelled Chloride Cancelled Carbon Dioxide Cancelled Anion Gap Cancelled BUN Cancelled Creatinine Cancelled Est GFR ( Amer) Cancelled Est GFR (Non-Af Amer) Cancelled Glucose Cancelled Calcium Cancelled Total Bilirubin Cancelled AST Cancelled ALT Cancelled Alkaline Phosphatase Cancelled Total Protein Cancelled Albumin Cancelled Lipase Cancelled Urine Color Urine Appearance Urine pH Ur Specific Ho[place] Urine Protein Urine Glucose (UA) Urine Ketones Urine Blood Urine Nitrite Ur Leukocyte Esterase Urine WBC (Auto) Urine RBC (Auto) 07/06/18 07/06/18 07/06/18 03:20 03:25 07:15 WBC RBC Hgb Hct MCV MCH MCHC RDW Plt Count Seg Neutrophils % Lymphocytes % Monocytes % Eosinophils % Basophils % Absolute Neutrophils Absolute Lymphocytes Absolute Monocytes Absolute Eosinophils Absolute Basophils VBG pH 7.23 L VBG pCO2 42.8 VBG HCO3 17.4 L VBG Base Excess -9.9 Sodium 134.5 L 132.0 L Potassium 4.2 3.7 Chloride 103 101 Carbon Dioxide 15 L 18 L Anion Gap 17 13 BUN 21 H 17 Creatinine 0.87 0.72 Est GFR ( Amer) > 60 > 60 Est GFR (Non-Af Amer) > 60 > 60 Glucose 98 107 Calcium 9.2 8.5 Total Bilirubin 2.6 H AST 16 L ALT 21 Alkaline Phosphatase 72 Total Protein 7.3 Albumin 4.1 Lipase 83.4 Urine Color Urine Appearance Urine pH Ur Specific [place] Urine Protein Urine Glucose (UA) Urine Ketones Urine Blood Urine Nitrite Ur Leukocyte Esterase Urine WBC (Auto) Urine RBC (Auto) 07/05/18 07/06/18 07/06/18 22:38 03:20 09:19 Troponin I < 0.012 < 0.012 < 0.012 07/06/18 15:10 Troponin I < 0.012 Impressions: Chest X-Ray 07/05/18 21:57 IMPRESSION: Negative chest copyright 2011 [employer]- All Rights Reserved Assessment and Plan - Diagnosis (1) Diabetic ketoacidosis Qualifiers: Diabetes mellitus type: type 2 Diabetes mellitus complication detail: without coma Qualified Code(s): E11.10 - Type 2 diabetes mellitus with ketoacidosis without coma Is this a current diagnosis for this admission?: Yes Plan: We will transition him back over to insulin 70/30 and get him off the insulin drip. He was supposed to be on Lantus at home but he said it cost him over $300 a month and so were going to try 70/30 to see if they can keep his blood sugar under control. - Time Time Spent with patient: 15-24 minutes
[2018-07-06] MEDS: HUM INSULIN NPH/REG INSULIN HM 100 UNIT/1 ML 3 ML SUBCUT SCH (18:23)
[2018-07-07] MEDS: PANTOPRAZOLE SODIUM 40 MG TABLET.DR PO SCH (05:04)
[2018-07-07] MEDS: HEPARIN SOD (PORCINE) 5,000 UNIT/ML 1 ML SYRINGE SUBCUT SCH (05:04)
[2018-07-07 05:12] LABS: MEAN CORPUSCULAR HEMOGLOBIN 32.7 pg (27.0-33.4); MEAN CORPUSCULAR HGB CONC 35.3 g/dL (32.0-36.0); MEAN CORPUSCULAR VOLUME 93 fl (80-97); PLATELET COUNT 286 10^3/uL (150-450); RED CELL DISTRIBUTION WIDTH 12.8 % (11.5-14.0); WHITE BLOOD COUNT 6.8 10^3/uL (4.0-10.5)
[2018-07-07 05:34] LABS: HEMOGLOBIN 13.4 g/dL (13.5-17.0)
[2018-07-07 05:39] LABS: ALANINE AMINOTRANSFERASE 24 U/L (21-72); ALBUMIN 3.9 g/dL (3.5-5.0); ALKALINE PHOSPHATASE 78 U/L (38-126); ANION GAP 11 (5-19); ASPARTATE AMINO TRANSFERASE 30 U/L (17-59); BILIRUBIN,DIRECT 0.9 mg/dL (0.0-0.4); BILIRUBIN,TOTAL 4.3 mg/dL (0.2-1.3); BLOOD UREA NITROGEN 12 mg/dL (7-20); CARBON DIOXIDE 24 mmol/L (22-30); CHLORIDE 98 mmol/L (98-107); GLUCOSE 188 mg/dL (75-110); PHOSPHORUS 1.5 mg/dL (2.5-4.5); POTASSIUM 3.3 mmol/L (3.6-5.0); SODIUM 133.3 mmol/L (137-145); TOTAL PROTEIN 7.3 g/dL (6.3-8.2)
--- NOTE | 2018-07-07 07:39 | EKG REPORT ---
SEVERITY:- ABNORMAL ECG - SINUS RHYTHM LVH WITH SECONDARY REPOLARIZATION ABNORMALITY : Confirmed by: Олег Fajardo MD 07-Jul-2018 07:39:08
[2018-07-07] MEDS: HUM INSULIN NPH/REG INSULIN HM 100 UNIT/1 ML 3 ML SUBCUT SCH (08:39)
[2018-07-07] MEDS: ACETAMINOPHEN 325 MG TABLET PO PRN (08:42)
[2018-07-07] MEDS ORDERED: POTASSIUM PHOS,M-BASIC-D-BASIC 15 MMOL in NORMAL SALINE 250 ML IV ONE (10:30)
[2018-07-07] MEDS ORDERED: INSULIN LISPRO 100 UNIT/ML 3 ML VIAL SUBCUT ONE (12:00)
[2018-07-07 12:18] VITALS: BP 128/79
--- NOTE | 2018-07-07 15:26 | PDOC DISCHARGE SUMMARY ---
General - Admit/Disc Date/PCP Admission Date/Primary Care Provider: 07/06/18 03:13 Discharge Date: 07/07/18 - Discharge Diagnosis (1) Diabetic ketoacidosis Is this a current diagnosis for this admission?: Yes Summary: Responded well to IV fluids, electrolyte management, and insulin drip. Was transitioned back to insulin 70/30. Was given a prescription for this at discharge. - Additional Information Resuscitation Status: Full Code Discharge Diet: Diabetic Discharge Activity: Activity As Tolerated Prescriptions: Hum Insulin NPH/Reg Insulin Hm [Insulin 70-30 (NPH/Reg) 100 unit/mL] 28 unit SUBCUT BIDACBS #1 bottle Home Medications: Atorvastatin Calcium [Lipitor 40 mg Tablet] 40 mg PO QHS 07/06/18 Lisinopril [Prinivil 5 mg Tablet] 10 mg PO DAILY 07/06/18 Hum Insulin NPH/Reg Insulin Hm [Insulin 70-30 (NPH/Reg) 100 unit/mL] 28 unit SUBCUT BIDACBS #1 bottle 07/07/18 History of Present Illness History of Present Illness: DAVI IVEY is a 48 year old male with uncontrolled type 2 diabetes, lives [place], has not been able to afford his lantus and so bought novolin/regular insulin and he said that he just hasnt been able to control his blood glucose. Has felt weaker over past few days, came in today with chest pain, that is now resolved. One episode of non bloody emesis last night. No dyspnea, no bleeding, no abd pain, no dysuria, no falls or trauma. Admitted to [facility] with DKA. Hospital Course Hospital Course: Responded well to IV fluids, electrolyte management, and an insulin drip. His phosphorus was low and so we had to replace that prior to discharge. He said that he took Lantus at home but it was very expensive and cost him over $300 a month and asked if we can find an alternative for him so we tried him on some 70/30, and were able to control his blood sugars reasonably well. He said that he was on 26 units of Lantus twice a day, and I discharged him on 28 units of Novolin 70/30 two times a day. His labs and examination were reassuring and he discharged home in good condition. Physical Exam Vital Signs: Temp Pulse Resp BP Pulse Ox 97.4 F 90 14 128/79 H 99 07/07/18 11:36 07/07/18 11:36 07/07/18 11:36 07/07/18 11:36 07/07/18 11:36 Intake & Output 07/06/18 07/07/18 07/08/18 06:59 06:59 06:59 Intake Total 3052 3457 350 Balance 3052 3457 350 Weight 114.9 kg 117.8 kg General appearance: PRESENT: no acute distress, cooperative, disheveled Respiratory exam: PRESENT: clear to auscultation fernandez, symmetrical, unlabored. ABSENT: accessory muscle use, crackles, prolonged expiratory phas, rhonchi, tachypnea, wheezes Cardiovascular exam: PRESENT: RRR, +S1, +S2 Pulses: PRESENT: normal carotid pulses Vascular exam: PRESENT: normal capillary refill GI/Abdominal exam: PRESENT: normal bowel sounds, soft. ABSENT: distended, guarding, rebound, tenderness Extremities exam: ABSENT: clubbing, pedal edema Musculoskeletal exam: PRESENT: normal inspection. ABSENT: deformity Neurological exam: PRESENT: alert, awake, oriented to person, oriented to place, oriented to time, oriented to situation Psychiatric exam: PRESENT: flat affect Skin exam: PRESENT: dry, warm Results Laboratory Results: 07/07/18 04:48 07/07/18 04:48 07/07/18 07/07/18 04:48 04:48 WBC 6.8 RBC 4.10 L Hgb 13.4 L D Hct 38.0 MCV 93 MCH 32.7 MCHC 35.3 RDW 12.8 Plt Count 286 Sodium 133.3 L Potassium 3.3 L Chloride 98 Carbon Dioxide 24 Anion Gap 11 BUN 12 Creatinine 0.75 Est GFR ( Amer) > 60 Est GFR (Non-Af Amer) > 60 Glucose 188 H Calcium 9.0 Phosphorus 1.5 L Magnesium 1.6 Total Bilirubin 4.3 H AST 30 ALT 24 Alkaline Phosphatase 78 Total Protein 7.3 Albumin 3.9 07/05/18 07/06/18 07/06/18 22:38 03:20 09:19 Troponin I < 0.012 < 0.012 < 0.012 07/06/18 15:10 Troponin I < 0.012 Impressions: Chest X-Ray 07/05/18 21:57 IMPRESSION: Negative chest copyright 2011 [employer]- All Rights Reserved Qualifiers - * PATIENT BEING DISCHARGED WITH ANY OF THE FOLLOWING DIAGNOSIS: No Plan Time Spent: Greater than 30 Minutes
== END 2018-07-07 14:37 | disposition home or self-care (01) | DRG 639 ==
LOC: ER 21:34 → EH 07-06 03:13 → 3S 07-06 05:10
PROVIDERS: ADMIT Internal Medicine; ATTEND Internal Medicine
DX: E11.10 Type 2 diabetes mellitus with ketoacidosis without coma (principal); R07.9 Chest pain, unspecified; E78.5 Hyperlipidemia, unspecified; I10 Essential (primary) hypertension; Z79.82 Long term (current) use of aspirin; Z79.4 Long term (current) use of insulin; Z59.9 Problem related to housing and economic circumstances, unspecified; Z87.891 Personal history of nicotine dependence; Z83.3 Family history of diabetes mellitus; Z82.49 Family history of ischemic heart disease and other diseases of the circulatory system
CPT/HCPCS: 36415; 71045; 80048; 80053; 80076; 80307; 81001; 82803; 82962; 83036; 83690; 83735; 84100; 84484; 85025; 85027; 85610; 85730; 93005; 93010; 96360; 96361; 99291; 99292; J1644; J1815; J3480; J3490; J7030; J7050; J7120

== ENCOUNTER 2019-02-18 01:57 | Inpatient (IN) | payer OTHER ==
[2019-02-18] MEDS ORDERED: NORMAL SALINE 1000 ML 1,000 ML IV ONE ×2 (02:27→03:05)
[2019-02-18 02:49] LABS: ABSOLUTE LYMPHOCYTES (AUTO) 0.9 10^3/uL (0.5-4.7); ABSOLUTE MONOCYTES (AUTO) 0.4 10^3/uL (0.1-1.4); ABSOLUTE NEUT (AUTO) 8.6 10^3/uL (1.7-8.2); BASOPHILS % (AUTO) 0.4 % (0-2); HEMATOCRIT 50.1 % (37.9-51.0); HEMOGLOBIN 16.7 g/dL (13.5-17.0); LYMPHOCYTES % (AUTO) 9.5 % (13-45); MEAN CORPUSCULAR HEMOGLOBIN 32.1 pg (27.0-33.4); MEAN CORPUSCULAR HGB CONC 33.4 g/dL (32.0-36.0); MEAN CORPUSCULAR VOLUME 96 fl (80-97); MONOCYTES % (AUTO) 4.2 % (3-13); PLATELET COUNT 448 10^3/uL (150-450); RED BLOOD COUNT 5.21 10^6/uL (4.35-5.55); RED CELL DISTRIBUTION WIDTH 13.7 % (11.5-14.0); SEGMENTED NEUTROPHILS % (AUTO) 85.9 % (42-78); TOTAL CELLS COUNTED % (AUTO) 100 %; WHITE BLOOD COUNT 9.9 10^3/uL (4.0-10.5)
[2019-02-18 02:58] LABS: VENOUS BLOOD HCO3 11.5 mmol/L (20-32); VENOUS BLOOD PCO2 36.1 mmHg (35-63)
[2019-02-18 03:01] LABS: VENOUS BLOOD PH 7.12 (7.30-7.42)
[2019-02-18 03:12] LABS: ALBUMIN 5.7 g/dL (3.5-5.0); ALKALINE PHOSPHATASE 105 U/L (38-126); ASPARTATE AMINO TRANSFERASE 18 U/L (17-59); BILIRUBIN,DIRECT 0.6 mg/dL (0.0-0.4); BILIRUBIN,TOTAL 1.8 mg/dL (0.2-1.3); BLOOD UREA NITROGEN 17 mg/dL (7-20); CHLORIDE 101 mmol/L (98-107); TOTAL PROTEIN 10.3 g/dL (6.3-8.2)
[2019-02-18 03:15] LABS: APPEARANCE,URINE CLEAR; BILIRUBIN,URINE NEGATIVE (NEGATIVE); COLOR,URINE YELLOW; GLUCOSE, URINE >=500 mg/dL (NEGATIVE); KETONES,URINE 80 mg/dL (NEGATIVE); LEUKOCYTE ESTERASE,URINE NEGATIVE (NEGATIVE); NITRITE,URINE NEGATIVE (NEGATIVE); PROTEIN,URINE 100 mg/dL (NEGATIVE); UROBILINOGEN,URINE NEGATIVE mg/dL (<2.0)
[2019-02-18 03:20] LABS: ANION GAP 32 (5-19); CARBON DIOXIDE 10 mmol/L (22-30); GLUCOSE 446 mg/dL (75-110)
[2019-02-18] MEDS ORDERED: INSULIN REG, HUMAN 100 UNIT/ML 3 ML VIAL (PYX) IV ONE ×3 (03:27→03:32)
[2019-02-18] MEDS ORDERED: DEXTROSE 50%-WATER 25 GM/50 ML DISP.SYRIN IV PRN ×4 (03:33→07:37)
[2019-02-18] MEDS ORDERED: NORMAL SALINE 100 ML with INSULIN REGULAR, HUMAN 100 UNIT IV PRN ×4 (03:33→07:37)
[2019-02-18] MEDS ORDERED: DEXTROSE 40% GEL 15 GM TUBE PO PRN ×4 (03:33→07:37)
[2019-02-18] MEDS ORDERED: GLUCAGON,HUMAN RECOMB 1 MG INJ IM PRN ×2 (03:33→07:37)
--- NOTE | 2019-02-18 04:25 | ER Document Report ---
ED General - General Chief Complaint: Urinary Frequency Stated Complaint: FREQUENT URINATION Time Seen by Provider: 02/18/19 02:26 Primary Care Provider: TREVIN LATHAM MD [Primary Care Provider] - Follow up as needed Notes: Patient is a 49-year-old male history of type 2 diabetes presents to the emergency department for 24 hours of generalized nausea and vomiting. Patient's denying any fevers or abdominal pain. Voices he has been taking his medications as prescribed. States he is on Humulin. Patient voices he is not taking any other medications and he has no other medical problems. Patient voices his primary care provider is Dr. Hyatt. TRAVEL OUTSIDE OF THE [place] IN LAST 30 DAYS: No - Related Data Allergies/Adverse Reactions: No Known Allergies Allergy (Unverified 02/18/19 03:00) Home Medications: Insulin Past Medical History - General Information source: Patient - Social History Smoking Status: Never Smoker Frequency of alcohol use: None Drug Abuse: None Family History: CAD, DM, Hypertension, Malignancy, Other - Heart failure Patient has suicidal ideation: No Patient has homicidal ideation: No - Past Medical History Cardiac Medical History: Reports: Hx Hypercholesterolemia, Hx Hypertension Denies: Hx Coronary Artery Disease, Hx Peripheral Vascular Disease Pulmonary Medical History: Denies: Hx Asthma, Hx COPD Neurological Medical History: Denies: Hx Seizures Endocrine Medical History: Reports: Hx Diabetes Mellitus Type 2. Denies: Hx Diabetes Mellitus Type 1, Hx Hyperthyroidism, Hx Hypothyroidism Renal/ Medical History: Denies: Hx End Stage Renal Disease, Hx Peritoneal Dialysis GI Medical History: Denies: Hx Cirrhosis, Hx Hepatitis Musculoskeletal Medical History: Denies Hx Arthritis, Denies Hx Gout Skin Medical History: Denies Hx Eczema, Denies Hx Psoriasis Psychiatric Medical History: Denies: Hx Depression Infectious Medical History: Denies: Hx Hepatitis Review of Systems - Review of Systems Constitutional: denies: Fever EENT: No symptoms reported Cardiovascular: No symptoms reported Respiratory: No symptoms reported Gastrointestinal: See HPI Genitourinary: Frequency Male Genitourinary: No symptoms reported Musculoskeletal: No symptoms reported Skin: No symptoms reported Hematologic/Lymphatic: No symptoms reported Neurological/Psychological: No symptoms reported Physical Exam - Vital signs Vitals: Temp Resp BP Pulse Ox 97.3 F 30 H 139/98 H 100 02/18/19 02:21 02/18/19 02:21 02/18/19 02:21 02/18/19 02:21 - Notes Notes: GENERAL: Alert, interacts well. No acute distress. HEAD: Normocephalic, atraumatic. EYES: Pupils equal, round, and reactive to light. Extraocular movements intact. ENT: Oral mucosa dry, tongue midline. NECK: Full range of motion. Supple. Trachea midline. LUNGS: Clear to auscultation bilaterally, no wheezes, rales, or rhonchi. No respiratory distress, yet tachypneic HEART: Tachycardic rate and rhythm. No murmur ABDOMEN: Soft, non-tender. Non-distended. Bowel sounds present in all 4 quadrants. EXTREMITIES: Moves all 4 extremities spontaneously. No edema, normal radial and dorsalis pedis pulses bilaterally. No cyanosis. BACK: no cervical, thoracic, lumbar midline tenderness. No saddle anesthesia, normal distal neurovascular exam. NEUROLOGICAL: Alert and oriented x3. Normal speech. cranial nerves II through XII grossly intact. PSYCH: Normal affect, normal mood. SKIN: Warm, dry, normal turgor. No rashes or lesions noted. Course - Re-evaluation Re-evalutation: Laboratory 02/18/19 02/18/19 02/18/19 02:33 02:37 02:37 WBC 9.9 RBC 5.21 Hgb 16.7 Hct 50.1 MCV 96 MCH 32.1 MCHC 33.4 RDW 13.7 Plt Count 448 Lymph % (Auto) 9.5 L [place] % (Auto) 4.2 Eos % (Auto) 0.0 Baso % (Auto) 0.4 Absolute Neuts (auto) 8.6 H Absolute Lymphs (auto) 0.9 Absolute Monos (auto) 0.4 Absolute Eos (auto) 0.0 Absolute Basos (auto) 0.0 Seg Neutrophils % 85.9 H VBG pH VBG pCO2 VBG HCO3 VBG Base Excess Sodium 143.2 Potassium 6.0 H* Chloride 101 Carbon Dioxide 10 L* Anion Gap 32 H BUN 17 Creatinine 1.67 H Est GFR ( Amer) 53 L Est GFR (MDRD) Non-Af 44 L Glucose 446 H* POC Glucose 388 H Calcium 11.0 H Total Bilirubin 1.8 H Direct Bilirubin 0.6 H Neonat Total Bilirubin Not Reportable Neonat Direct Bilirubin Not Reportable Neonat Indirect Bili Not Reportable AST 18 ALT 15 Alkaline Phosphatase 105 Total Protein 10.3 H Albumin 5.7 H Urine Color Urine Appearance Urine pH Ur Specific [place] Urine Protein Urine Glucose (UA) Urine Ketones Urine Blood Urine Nitrite Urine Bilirubin Urine Urobilinogen Ur Leukocyte Esterase Urine WBC (Auto) U Hyaline Cast (Auto) Squamous Epi Cells Auto Urine Mucus (Auto) Urine Ascorbic Acid 02/18/19 02/18/19 02:37 02:42 WBC RBC Hgb Hct MCV MCH MCHC RDW Plt Count Lymph % (Auto) [place] % (Auto) Eos % (Auto) Baso % (Auto) Absolute Neuts (auto) Absolute Lymphs (auto) Absolute Monos (auto) Absolute Eos (auto) Absolute Basos (auto) Seg Neutrophils % VBG pH 7.12 L* VBG pCO2 36.1 VBG HCO3 11.5 L VBG Base Excess -17.0 Sodium Potassium Chloride Carbon Dioxide Anion Gap BUN Creatinine Est GFR ( Amer) Est GFR (MDRD) Non-Af Glucose POC Glucose Calcium Total Bilirubin Direct Bilirubin Neonat Total Bilirubin Neonat Direct Bilirubin Neonat Indirect Bili AST ALT Alkaline Phosphatase Total Protein Albumin Urine Color YELLOW Urine Appearance CLEAR Urine pH 5.0 Ur Specific [place] 1.020 Urine Protein 100 H Urine Glucose (UA) >=500 H Urine Ketones 80 H Urine Blood MODERATE H Urine Nitrite NEGATIVE Urine Bilirubin NEGATIVE Urine Urobilinogen NEGATIVE Ur Leukocyte Esterase NEGATIVE Urine WBC (Auto) 0 U Hyaline Cast (Auto) 11 Squamous Epi Cells Auto <1 Urine Mucus (Auto) RARE Urine Ascorbic Acid NEGATIVE I have discussed this case with Jose Manuel Lowry PA-C in the ICU who will admit the Pt. for DKA. Will admit under Dr. Albarran as [facility] Lowry does not have admitting privileges. 02/18/19 04:37 EKG shows sinus tachycardia rate of 111, QTc 435, no ST segment elevations or depressions. No peaked T waves noted. - Vital Signs Vital signs: Temp Pulse Resp BP Pulse Ox 97.3 F 31 H 139/98 H 100 02/18/19 02:21 02/18/19 02:22 02/18/19 02:21 02/18/19 02:22 - Laboratory Result Diagrams: 02/18/19 02:37 02/18/19 02:37 Laboratory results interpreted by me: 02/18/19 02/18/19 02/18/19 02:33 02:37 02:37 Lymph % (Auto) 9.5 L Absolute Neuts (auto) 8.6 H Seg Neutrophils % 85.9 H VBG pH VBG HCO3 Potassium 6.0 H* Carbon Dioxide 10 L* Anion Gap 32 H Creatinine 1.67 H Est GFR ( Amer) 53 L Est GFR (MDRD) Non-Af 44 L Glucose 446 H* POC Glucose 388 H Calcium 11.0 H Total Bilirubin 1.8 H Direct Bilirubin 0.6 H Total Protein 10.3 H Albumin 5.7 H Urine Protein Urine Glucose (UA) Urine Ketones Urine Blood 02/18/19 02/18/19 02:37 02:42 Lymph % (Auto) Absolute Neuts (auto) Seg Neutrophils % VBG pH 7.12 L* VBG HCO3 11.5 L Potassium Carbon Dioxide Anion Gap Creatinine Est GFR ( Amer) Est GFR (MDRD) Non-Af Glucose POC Glucose Calcium Total Bilirubin Direct Bilirubin Total Protein Albumin Urine Protein 100 H Urine Glucose (UA) >=500 H Urine Ketones 80 H Urine Blood MODERATE H Discharge - Discharge Clinical Impression: DKA, type 2 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 Albarran Unit Admitted: ICU Referrals: TREVIN LATHAM MD [Primary Care Provider] - Follow up as needed
[2019-02-18] MEDS ORDERED: INSULIN REG, HUMAN 100 UNIT/ML 3 ML VIAL (PYX) ONE (04:27)
[2019-02-18] MEDS ORDERED: INFLUENZA QUAD (6MOS+) 2019-20 VAC 0.5 ML SYR IM ONE (07:02)
[2019-02-18] MEDS ORDERED: MAGNESIUM HYDROXIDE SUSP 30 ML UDCUP PO PRN (09:01)
[2019-02-18] MEDS ORDERED: NORMAL SALINE 1000 ML 1,000 ML IV PRN (09:05)
--- NOTE | 2019-02-18 10:04 | CRITICAL CARE ADMISSION REPORT ---
HPI Date:: 02/18/19 Time:: 08:00 Reason for ICU Reason:: DKA HPI: This patient is a 49 yo diabetic said to be type 2 but is hospitalized for the third time this year for DKA. No intercurrent illness but due to financial pressures cannot afford lantus, only humalog which has not kept him out of DKA. He corrected quickly last time and sugars have gone from 440 to 108 in a few hours. BMP pending and I anticipate less than 24 hours on drip. Will involve transition social worker to explore options for obtaining lantus. History obtained from:: Patient. - Diagnosis/Plan (1) Diabetic ketoacidosis Qualifiers: Diabetes mellitus type: type 2 Diabetes mellitus complication detail: without coma Qualified Code(s): E11.10 - Type 2 diabetes mellitus with ketoacidosis without coma Is this a current diagnosis for this admission?: Yes Plan: Insulin drip and IVF fo dehydration. Hyperkalemia should resolve with resolving DKA. Abd pain gone. - . Plan Summary: Insulin drip until anion gap closed. Then feed and transfer. Past Medical History Cardiac Medical History: Reports: Hyperlipidema, Hypertension Denies: Coronary Artery Disease, Peripheral Vascular Disease Pulmonary Medical History: Denies: Asthma, Chronic Obstructive Pulmonary Disease (COPD) Neurological Medical History: Denies: Seizures Endocrine Medical History: Reports: Diabetes Mellitus Type 2 Denies: Diabetes Mellitus Type 1, Hyperthyroidism, Hypothyroidism Renal/ Medical History: Denies: End Stage Renal Disease GI Medical History: Denies: Cirrhosis, Hepatitis Musculoskeltal Medical History: Denies: Arthritis, Gout Skin Medical History: Denies: Eczema, Psoriasis Psychiatric Medical History: Denies: Depression Hematology: Denies: Anemia, Bleeding Tendencies Social/Family History - Social History Lives with: Alone Smoking Status: Never Smoker Frequency of Alcohol Use: None Hx Recreational Drug Use: No Drugs: None Hx Prescription Drug Abuse: No - Medication/Allergies Home Medications: Hum Insulin NPH/Reg Insulin Hm [Insulin 70-30 (NPH/Reg) 100 unit/mL] 28 unit SUBCUT BIDACBS #1 bottle 07/07/18 Allergies/Adverse Reactions: No Known Allergies Allergy (Unverified 02/18/19 03:00) Review of Systems All systems: reviewed and no additional remarkable complaints except as stated Constitutional: ABSENT: chills, fever(s), headache(s), weight gain, weight loss Eyes: ABSENT: visual disturbances Ears: ABSENT: hearing changes Nose, Mouth, and Throat: PRESENT: other - mouth dry Cardiovascular: ABSENT: chest pain, dyspnea on exertion, edema, orthropnea, palpitations Respiratory: ABSENT: cough, hemoptysis Gastrointestinal: ABSENT: abdominal pain, constipation, diarrhea, hematemesis, hematochezia, nausea, vomiting Genitourinary: ABSENT: dysuria, hematuria Musculoskeletal: PRESENT: other - Some leg pain Integumentary: ABSENT: rash, wounds Neurological: ABSENT: abnormal gait, abnormal speech, confusion, dizziness, focal weakness, syncope Psychiatric: ABSENT: anxiety, depression, homidical ideation, suicidal ideation Endocrine: PRESENT: polydipsia, polyuria, other - High blood sugar. Hematologic/Lymphatic: ABSENT: easy bleeding, easy bruising Physical Exam Vital Signs: Temp Pulse Resp BP Pulse Ox 97.5 F 113 H 21 H 133/99 H 99 02/18/19 08:00 02/18/19 08:00 02/18/19 08:00 02/18/19 08:00 02/18/19 08:00 Intake & Output 02/17/19 02/18/19 02/19/19 06:59 06:59 06:59 Intake Total 2013 Balance 2013 Weight 112.3 kg Weight/Height Weight 112.3 kg Height 5 ft 8 in General appearance: PRESENT: no acute distress, well-developed, well-nourished Head exam: PRESENT: atraumatic, normocephalic, other - Soft round cyst in L forehead region. Eye exam: PRESENT: conjunctiva pink, EOMI, PERRLA. ABSENT: scleral icterus Ear exam: PRESENT: normal external ear exam Mouth exam: PRESENT: dry mucosa Respiratory exam: PRESENT: clear to auscultation fernandez. ABSENT: rales, rhonchi, wheezes Cardiovascular exam: PRESENT: tachycardia Pulses: PRESENT: normal dorsalis pedis pul Vascular exam: PRESENT: normal capillary refill GI/Abdominal exam: PRESENT: normal bowel sounds, soft. ABSENT: distended, guarding, mass, organolmegaly, rebound, tenderness Rectal exam: PRESENT: deferred Extremities exam: PRESENT: full ROM. ABSENT: calf tenderness, clubbing, pedal edema Neurological exam: PRESENT: alert, awake, oriented to person, oriented to place, oriented to time, oriented to situation, CN II-XII grossly intact. ABSENT: motor sensory deficit Psychiatric exam: PRESENT: appropriate affect, normal mood. ABSENT: homicidal ideation, suicidal ideation Skin exam: PRESENT: dry, intact, warm. ABSENT: cyanosis, rash Laboratory/Radiographs Laboratory Results: 02/18/19 02:37 02/18/19 09:00 02/18/19 02/18/19 02/18/19 02:37 02:37 02:37 WBC 9.9 RBC 5.21 Hgb 16.7 Hct 50.1 MCV 96 MCH 32.1 MCHC 33.4 RDW 13.7 Plt Count 448 Seg Neutrophils % 85.9 H VBG pH 7.12 L* VBG pCO2 36.1 VBG HCO3 11.5 L VBG Base Excess -17.0 Sodium 143.2 Potassium 6.0 H* Chloride 101 Carbon Dioxide 10 L* Anion Gap 32 H BUN 17 Creatinine 1.67 H Est GFR ( Amer) 53 L Est GFR (Non-Af Amer) Glucose 446 H* Calcium 11.0 H Phosphorus Magnesium Total Bilirubin 1.8 H AST 18 Alkaline Phosphatase 105 Total Protein 10.3 H Albumin 5.7 H Urine Color Urine Appearance Urine pH Ur Specific [place] Urine Protein Urine Glucose (UA) Urine Ketones Urine Blood Urine Nitrite Ur Leukocyte Esterase Urine WBC (Auto) 02/18/19 02/18/19 02:42 09:00 WBC RBC Hgb Hct MCV MCH MCHC RDW Plt Count Seg Neutrophils % VBG pH VBG pCO2 VBG HCO3 VBG Base Excess Sodium Cancelled Potassium Cancelled Chloride Cancelled Carbon Dioxide Cancelled Anion Gap Cancelled BUN Cancelled Creatinine Cancelled Est GFR ( Amer) Cancelled Est GFR (Non-Af Amer) Cancelled Glucose Cancelled Calcium Cancelled Phosphorus Cancelled Magnesium Cancelled Total Bilirubin AST Alkaline Phosphatase Total Protein Albumin Urine Color YELLOW Urine Appearance CLEAR Urine pH 5.0 Ur Specific [place] 1.020 Urine Protein 100 H Urine Glucose (UA) >=500 H Urine Ketones 80 H Urine Blood MODERATE H Urine Nitrite NEGATIVE Ur Leukocyte Esterase NEGATIVE Urine WBC (Auto) 0 Impressions: DKA All labs, radiographs, diagnostic studies and EKGs were personally reviewed: Yes In addition, reports of radiographic and diagnostic studies were read: Yes Critical Time Critical Time (minutes): 40 -: The care of a critically ill patient is dynamic. This note represents a static moment in the admission process. orders and treatments may be given simulata neously and urgentl, and time is not surgical device sales representative of the treatment process. This patient requires Critical Care secondary to life threating organ or limb dysfunction. Without the need for Critical Care services, the patient is at risk for increasid mortality and morbidity.
--- NOTE | 2019-02-18 11:14 | EKG REPORT ---
SEVERITY:- ABNORMAL ECG - SINUS TACHYCARDIA PROBABLE LVH WITH SECONDARY REPOL ABNRM BORDERLINE PROLONGED QT INTERVAL : Confirmed by: Rhonda Calderón MD 18-Feb-2019 11:13:38
--- NOTE | 2019-02-18 11:15 | EKG REPORT ---
SEVERITY:- ABNORMAL ECG - SINUS TACHYCARDIA LEFT VENTRICULAR HYPERTROPHY : Confirmed by: Rhonda Calderón MD 18-Feb-2019 11:13:43
[2019-02-18 11:56] LABS: ANION GAP 19 (5-19); BLOOD UREA NITROGEN 15 mg/dL (7-20); CALCIUM 9.7 mg/dL (8.4-10.2); CARBON DIOXIDE 13 mmol/L (22-30); CHLORIDE 110 mmol/L (98-107); GLUCOSE 152 mg/dL (75-110); PHOSPHORUS 3.3 mg/dL (2.5-4.5)
[2019-02-18 12:05] LABS: POTASSIUM 4.9 mmol/L (3.6-5.0)
[2019-02-18] MEDS: NORMAL SALINE 1000 ML 1,000 ML IV PRN ×2 (15:16→21:05)
[2019-02-18 17:09] LABS: BLOOD UREA NITROGEN 15 mg/dL (7-20); CALCIUM 9.6 mg/dL (8.4-10.2); GLUCOSE 337 mg/dL (75-110)
[2019-02-18 17:16] LABS: ANION GAP 21 (5-19); CHLORIDE 107 mmol/L (98-107)
[2019-02-18 17:18] LABS: CARBON DIOXIDE 10 mmol/L (22-30)
[2019-02-18 17:27] LABS: POTASSIUM 5.9 mmol/L (3.6-5.0)
[2019-02-18 23:25] LABS: BLOOD UREA NITROGEN 14 mg/dL (7-20); CALCIUM 9.6 mg/dL (8.4-10.2); CARBON DIOXIDE 16 mmol/L (22-30); GLUCOSE 248 mg/dL (75-110)
[2019-02-18 23:30] LABS: ANION GAP 18 (5-19); CHLORIDE 105 mmol/L (98-107)
[2019-02-18 23:39] LABS: POTASSIUM 4.2 mmol/L (3.6-5.0)
[2019-02-19] MEDS: DEXTROSE 5%-WATER 1000 ML 1,000 ML IV PRN ×3 (00:05→13:42)
[2019-02-19 05:11] LABS: ABSOLUTE EOSINOPHILS # (AUTO) 0.1 10^3/uL (0.0-0.6); ABSOLUTE LYMPHOCYTES (AUTO) 1.9 10^3/uL (0.5-4.7); ABSOLUTE NEUT (AUTO) 4.8 10^3/uL (1.7-8.2); BASOPHILS % (AUTO) 0.5 % (0-2); EOSINOPHILS % (AUTO) 1.1 % (0-6); HEMATOCRIT 39.6 % (37.9-51.0); MEAN CORPUSCULAR HEMOGLOBIN 31.8 pg (27.0-33.4); MEAN CORPUSCULAR VOLUME 93 fl (80-97); MONOCYTES % (AUTO) 12.7 % (3-13); PLATELET COUNT 318 10^3/uL (150-450); RED BLOOD COUNT 4.24 10^6/uL (4.35-5.55); RED CELL DISTRIBUTION WIDTH 13.4 % (11.5-14.0); SEGMENTED NEUTROPHILS % (AUTO) 61.7 % (42-78); TOTAL CELLS COUNTED % (AUTO) 100 %; WHITE BLOOD COUNT 7.8 10^3/uL (4.0-10.5)
[2019-02-19 05:16] LABS: HEMOGLOBIN 13.5 g/dL (13.5-17.0)
[2019-02-19 05:33] LABS: ANION GAP 18 (5-19); BLOOD UREA NITROGEN 13 mg/dL (7-20); CALCIUM 9.2 mg/dL (8.4-10.2); CARBON DIOXIDE 15 mmol/L (22-30); CHLORIDE 107 mmol/L (98-107); GLUCOSE 229 mg/dL (75-110); POTASSIUM 3.9 mmol/L (3.6-5.0)
[2019-02-19] MEDS: ACETAMINOPHEN 325 MG TABLET PO PRN ×2 (07:43→14:42)
[2019-02-19 14:20] LABS: ANION GAP 11 (5-19); BLOOD UREA NITROGEN 12 mg/dL (7-20); CALCIUM 9.8 mg/dL (8.4-10.2); CARBON DIOXIDE 22 mmol/L (22-30); CHLORIDE 101 mmol/L (98-107); GLUCOSE 85 mg/dL (75-110); PHOSPHORUS 1.9 mg/dL (2.5-4.5); POTASSIUM 3.3 mmol/L (3.6-5.0)
[2019-02-19] MEDS ORDERED: POTASSIUM CHLORIDE 10 MEQ CAPSULE.ER PO ONE (14:36)
[2019-02-19] MEDS: NORMAL SALINE 1000 ML 1,000 ML IV PRN (14:58)
[2019-02-19] MEDS: MAGNESIUM SULFATE/D5W 1 GM/100 ML RTUPB IV SCH ×3 (14:59→17:42)
--- NOTE | 2019-02-19 15:00 | PDOC CRITICAL CARE PROG REPORT ---
General Date:: 02/19/19 ICU Day:: 2 Ventilator Day:: 0 Hospital Day:: 2 Events in the past 12 to 24 Hours:: Patient's anion gap has continued to close. He is on high dose IV insulin therapy which is now been reduced to 2 units/h. He denies chest pain, shortness of breath, abdominal pain, fever, back pain. He has remained hemodynamically non-labile and afebrile Review of systems relevant to events:: see above Reason for ICU Addmission:: DKA - Medications: Medications reviewed and adjusted accordingly: Yes Vasopressors:: none Sedation:: None Physical Exam Vital Signs: Temp Pulse Resp BP Pulse Ox 96.2 F L 93 17 130/89 H 100 02/19/19 12:00 02/19/19 12:00 02/19/19 12:00 02/19/19 12:00 02/19/19 12:00 Intake & Output 02/18/19 02/19/19 02/20/19 06:59 06:59 06:59 Intake Total 2013 4747 1059 Output Total 2270 450 Balance 2013 9077 609 Weight 112.3 kg 115.4 kg Weight/Height Weight 115.4 kg Height 5 ft 8 in General appearance: PRESENT: no acute distress, cooperative, morbidly obese Exam: Pleasant nontoxic ill 49-year-old black male appears older than stated age weight 115 kg BMI 39 Head exam: PRESENT: atraumatic, normocephalic Eye exam: PRESENT: conjunctiva pink, EOMI, PERRLA. ABSENT: conjunctival injection, nystagmus, scleral icterus Ear exam: PRESENT: normal external ear exam Mouth exam: PRESENT: dry mucosa, neck supple, tongue midline Neck exam: PRESENT: full ROM. ABSENT: carotid bruit, JVD, lymphadenopathy, meningismus, thyromegaly, tracheal deviation Respiratory exam: PRESENT: clear to auscultation fernandez, unlabored. ABSENT: accessory muscle use, tachypnea, wheezes Cardiovascular exam: PRESENT: RRR, +S1, +S2. ABSENT: systolic murmur Pulses: PRESENT: +2 pedal pulses bilateral Vascular exam: PRESENT: normal capillary refill GI/Abdominal exam: PRESENT: normal bowel sounds, soft. ABSENT: ascites, distended, guarding, mass, Ya's sign, organolmegaly, rebound, rigid, tenderness Rectal exam: PRESENT: deferred Extremities exam: ABSENT: pedal edema Musculoskeletal exam: PRESENT: normal inspection. ABSENT: deformity, dislocation Neurological exam: PRESENT: alert, awake, oriented to person, oriented to place, oriented to time, oriented to situation, CN II-XII grossly intact. ABSENT: motor sensory deficit, aphasic Psychiatric exam: PRESENT: appropriate affect Skin exam: PRESENT: dry, intact, normal color. ABSENT: cyanosis, erythema, mottled, petechiae, urticaria, vesicles Tubes/Lines: ABSENT: Endotracheal Tube, Chest Tube, Central Line, Arterial Catheter, Dialysis catheter, Peg Tube, Nasogastic Tube, Other Laboratory/Radiographs Laboratory Results: 02/19/19 04:51 02/19/19 12:55 02/18/19 02/18/19 02/19/19 16:30 22:40 04:51 WBC 7.8 RBC 4.24 L Hgb 13.5 D Hct 39.6 MCV 93 MCH 31.8 MCHC 34.0 RDW 13.4 Plt Count 318 Seg Neutrophils % 61.7 Sodium 138.3 138.9 Potassium 5.9 H D 4.2 D Chloride 107 105 Carbon Dioxide 10 L* 16 L Anion Gap 21 H 18 BUN 15 14 Creatinine 1.00 0.96 Est GFR ( Amer) > 60 > 60 Glucose 337 H 248 H Calcium 9.6 9.6 Phosphorus Magnesium 02/19/19 02/19/19 04:51 12:55 WBC RBC Hgb Hct MCV MCH MCHC RDW Plt Count Seg Neutrophils % Sodium 140.1 133.9 L Potassium 3.9 3.3 L Chloride 107 101 Carbon Dioxide 15 L 22 Anion Gap 18 11 BUN 13 12 Creatinine 0.94 0.83 Est GFR ( Amer) > 60 > 60 Glucose 229 H 85 Calcium 9.2 9.8 Phosphorus 1.9 L Magnesium 1.5 L Labs- All tests 24 hr 02/18/19 02/18/19 02/18/19 16:30 18:46 20:01 WBC RBC Hgb Hct MCV MCH MCHC RDW Plt Count Lymph % (Auto) [place] % (Auto) Eos % (Auto) Baso % (Auto) Absolute Neuts (auto) Absolute Lymphs (auto) Absolute Monos (auto) Absolute Eos (auto) Absolute Basos (auto) Seg Neutrophils % Sodium 138.3 Potassium 5.9 H D Chloride 107 Carbon Dioxide 10 L* Anion Gap 21 H BUN 15 Creatinine 1.00 Est GFR ( Amer) > 60 Est GFR (MDRD) Non-Af > 60 Glucose 337 H POC Glucose 332 H 350 H Calcium 9.6 Phosphorus Magnesium 02/18/19 02/18/19 02/18/19 21:03 22:08 22:40 WBC RBC Hgb Hct MCV MCH MCHC RDW Plt Count Lymph % (Auto) [place] % (Auto) Eos % (Auto) Baso % (Auto) Absolute Neuts (auto) Absolute Lymphs (auto) Absolute Monos (auto) Absolute Eos (auto) Absolute Basos (auto) Seg Neutrophils % Sodium 138.9 Potassium 4.2 D Chloride 105 Carbon Dioxide 16 L Anion Gap 18 BUN 14 Creatinine 0.96 Est GFR ( Amer) > 60 Est GFR (MDRD) Non-Af > 60 Glucose 248 H POC Glucose 264 H 247 H Calcium 9.6 Phosphorus Magnesium 02/18/19 02/18/19 02/19/19 23:05 23:53 01:10 WBC RBC Hgb Hct MCV MCH MCHC RDW Plt Count Lymph % (Auto) [place] % (Auto) Eos % (Auto) Baso % (Auto) Absolute Neuts (auto) Absolute Lymphs (auto) Absolute Monos (auto) Absolute Eos (auto) Absolute Basos (auto) Seg Neutrophils % Sodium Potassium Chloride Carbon Dioxide Anion Gap BUN Creatinine Est GFR ( Amer) Est GFR (MDRD) Non-Af Glucose POC Glucose 205 H 156 H 116 H Calcium Phosphorus Magnesium 02/19/19 02/19/19 02/19/19 02:02 03:05 04:07 WBC RBC Hgb Hct MCV MCH MCHC RDW Plt Count Lymph % (Auto) [place] % (Auto) Eos % (Auto) Baso % (Auto) Absolute Neuts (auto) Absolute Lymphs (auto) Absolute Monos (auto) Absolute Eos (auto) Absolute Basos (auto) Seg Neutrophils % Sodium Potassium Chloride Carbon Dioxide Anion Gap BUN Creatinine Est GFR ( Amer) Est GFR (MDRD) Non-Af Glucose POC Glucose 133 H 142 H 177 H Calcium Phosphorus Magnesium 02/19/19 02/19/19 02/19/19 04:51 04:51 05:07 WBC 7.8 RBC 4.24 L Hgb 13.5 D Hct 39.6 MCV 93 MCH 31.8 MCHC 34.0 RDW 13.4 Plt Count 318 Lymph % (Auto) 24.0 [place] % (Auto) 12.7 Eos % (Auto) 1.1 Baso % (Auto) 0.5 Absolute Neuts (auto) 4.8 Absolute Lymphs (auto) 1.9 Absolute Monos (auto) 1.0 Absolute Eos (auto) 0.1 Absolute Basos (auto) 0.0 Seg Neutrophils % 61.7 Sodium 140.1 Potassium 3.9 Chloride 107 Carbon Dioxide 15 L Anion Gap 18 BUN 13 Creatinine 0.94 Est GFR ( Amer) > 60 Est GFR (MDRD) Non-Af > 60 Glucose 229 H POC Glucose 227 H Calcium 9.2 Phosphorus Magnesium 02/19/19 02/19/19 02/19/19 06:07 06:59 08:05 WBC RBC Hgb Hct MCV MCH MCHC RDW Plt Count Lymph % (Auto) [place] % (Auto) Eos % (Auto) Baso % (Auto) Absolute Neuts (auto) Absolute Lymphs (auto) Absolute Monos (auto) Absolute Eos (auto) Absolute Basos (auto) Seg Neutrophils % Sodium Potassium Chloride Carbon Dioxide Anion Gap BUN Creatinine Est GFR ( Amer) Est GFR (MDRD) Non-Af Glucose POC Glucose 261 H 280 H 273 H Calcium Phosphorus Magnesium 02/19/19 02/19/19 02/19/19 09:11 10:03 11:05 WBC RBC Hgb Hct MCV MCH MCHC RDW Plt Count Lymph % (Auto) [place] % (Auto) Eos % (Auto) Baso % (Auto) Absolute Neuts (auto) Absolute Lymphs (auto) Absolute Monos (auto) Absolute Eos (auto) Absolute Basos (auto) Seg Neutrophils % Sodium Potassium Chloride Carbon Dioxide Anion Gap BUN Creatinine Est GFR ( Amer) Est GFR (MDRD) Non-Af Glucose POC Glucose 252 H 194 H 181 H Calcium Phosphorus Magnesium 02/19/19 02/19/19 02/19/19 12:01 12:55 13:02 WBC RBC Hgb Hct MCV MCH MCHC RDW Plt Count Lymph % (Auto) [place] % (Auto) Eos % (Auto) Baso % (Auto) Absolute Neuts (auto) Absolute Lymphs (auto) Absolute Monos (auto) Absolute Eos (auto) Absolute Basos (auto) Seg Neutrophils % Sodium 133.9 L Potassium 3.3 L Chloride 101 Carbon Dioxide 22 Anion Gap 11 BUN 12 Creatinine 0.83 Est GFR ( Amer) > 60 Est GFR (MDRD) Non-Af > 60 Glucose 85 POC Glucose 119 H 98 Calcium 9.8 Phosphorus 1.9 L Magnesium 1.5 L 02/19/19 02/19/19 14:07 14:37 WBC RBC Hgb Hct MCV MCH MCHC RDW Plt Count Lymph % (Auto) [place] % (Auto) Eos % (Auto) Baso % (Auto) Absolute Neuts (auto) Absolute Lymphs (auto) Absolute Monos (auto) Absolute Eos (auto) Absolute Basos (auto) Seg Neutrophils % Sodium Potassium Chloride Carbon Dioxide Anion Gap BUN Creatinine Est GFR ( Amer) Est GFR (MDRD) Non-Af Glucose POC Glucose 105 107 Calcium Phosphorus Magnesium All labs, radiographs, diagnostic studies and EKGs were personally reviewed: Yes In addition, reports of radiographic and diagnostic studies were read: Yes Assessment and Plan - Diagnosis (1) DKA, type 1, not at goal Is this a current diagnosis for this admission?: Yes Plan: Improved. Gap now closed (2) Medically noncompliant Is this a current diagnosis for this admission?: Yes Plan: Will need education and case management for financial assistance (3) Acute kidney failure Qualifiers: Acute renal failure type: with other specified pathological lesion Qualified Code(s): N17.8 - Other acute kidney failure Is this a current diagnosis for this admission?: Yes Plan: from dehydration, pre-renal (4) Hyperglycemia due to type 1 diabetes mellitus Is this a current diagnosis for this admission?: Yes Plan: Improved (5) Morbid obesity due to excess calories Is this a current diagnosis for this admission?: Yes Plan: chronic, present on admission (6) Dehydration Is this a current diagnosis for this admission?: Yes Plan: improved (7) Hyponatremia with decreased serum osmolality Is this a current diagnosis for this admission?: Yes Plan: Multifactorial, stop d5w (8) History of essential hypertension Is this a current diagnosis for this admission?: Yes Plan Summary: Patient is much improved as far as his DKA. Gap is closed. Given his excessive need of high-dose insulin I am concerned that he has a subtype of type II or his type II DKA prone. That being said he was diagnosed approximately 10 to 12 years ago and has never been on oral hypoglycemics. At this point will start Lantus twice a day and subcutaneous insulin coverage. Have asked nurse educator to meet with the patient as well as case management to achieve better financial assistance to allow him to care for his diabetes appropriately. We will advance diet but continue every hour glucose checks to determine his exact insulin needs. Will order metabolic profile for this evening but have discontinued the every 4 hour lab work. Hemoglobin A1c and TSH are pending Will advance diet and downgrade patient Required critical care until anion gap was closed. Critical Time Critical Time (minutes): 40 Level of Care: ICU Anticipated discharge: Home Within: within 48 hours -: 1. The care of a critical patient is a dynamic process. This note is a ambulatory services representative synopsis but static in nature. The timeframe for treatments given in order is not necessary the actual time these treatments may have been done. 2. This patient requires critical care secondary to ongoing requirements for therapy not offered or safe outside the critical care environment. Transfer to a lower level of care with altered life or limb morbidity and mortality. In addition, required vigilant Insulin therapy with metabolic disturbance 3. Multidisciplinary rounds completed. 4. ABCDE bundle addressed on multidisciplinary rounds.
[2019-02-19] MEDS ORDERED: INSULIN GLARGINE,HUM.REC.ANLOG 1,000 UNIT/10 ML VIAL (PYX) SUBCUT ONE (15:15)
[2019-02-19] MEDS ORDERED: NORMAL SALINE IV ONE (16:00)
[2019-02-19] MEDS ORDERED: POTASSIUM PHOS M BASIC D BASIC IV ONE (16:00)
[2019-02-19] MEDS ORDERED: INSULIN GLARGINE,HUM.REC.ANLOG 1,000 UNIT/10 ML VIAL SUBCUT SCH (18:00)
[2019-02-19] MEDS ORDERED: INSULIN REG, HUMAN 100 UNIT/ML 3 ML VIAL (PYX) SUBCUT SCH (18:00)
[2019-02-19] MEDS: INSULIN REG, HUMAN 100 UNIT/ML 3 ML VIAL (PYX) SUBCUT SCH ×2 (18:11→22:03)
[2019-02-19 19:57] LABS: APPEARANCE,URINE CLEAR; BILIRUBIN,URINE NEGATIVE (NEGATIVE); COLOR,URINE YELLOW; GLUCOSE, URINE >=500 mg/dL (NEGATIVE); KETONES,URINE 80 mg/dL (NEGATIVE); LEUKOCYTE ESTERASE,URINE NEGATIVE (NEGATIVE); NITRITE,URINE NEGATIVE (NEGATIVE); PROTEIN,URINE NEGATIVE (NEGATIVE); UROBILINOGEN,URINE NEGATIVE mg/dL (<2.0)
[2019-02-19 20:40] LABS: ANION GAP 18 (5-19); BLOOD UREA NITROGEN 12 mg/dL (7-20); CARBON DIOXIDE 15 mmol/L (22-30); CHLORIDE 100 mmol/L (98-107); GLUCOSE 270 mg/dL (75-110); PHOSPHORUS 3.4 mg/dL (2.5-4.5)
[2019-02-19 20:58] LABS: POTASSIUM 5.4 mmol/L (3.6-5.0)
[2019-02-19] MEDS: ENOXAPARIN SODIUM INJ 40 MG/0.4 ML DISP.SYRIN SUBCUT SCH (21:19)
[2019-02-20] MEDS: INSULIN REG, HUMAN 100 UNIT/ML 3 ML VIAL (PYX) SUBCUT SCH ×6 (02:28→21:58)
[2019-02-20] MEDS: ACETAMINOPHEN 325 MG TABLET PO PRN ×2 (02:47→22:03)
[2019-02-20 05:30] LABS: ABSOLUTE EOSINOPHILS # (AUTO) 0.1 10^3/uL (0.0-0.6); ABSOLUTE LYMPHOCYTES (AUTO) 1.8 10^3/uL (0.5-4.7); ABSOLUTE MONOCYTES (AUTO) 0.7 10^3/uL (0.1-1.4); ABSOLUTE NEUT (AUTO) 5.1 10^3/uL (1.7-8.2); BASOPHILS % (AUTO) 0.5 % (0-2); EOSINOPHILS % (AUTO) 0.8 % (0-6); HEMATOCRIT 37.7 % (37.9-51.0); HEMOGLOBIN 13.1 g/dL (13.5-17.0); LYMPHOCYTES % (AUTO) 23.7 % (13-45); MEAN CORPUSCULAR HEMOGLOBIN 31.9 pg (27.0-33.4); MEAN CORPUSCULAR HGB CONC 34.7 g/dL (32.0-36.0); MEAN CORPUSCULAR VOLUME 92 fl (80-97); MONOCYTES % (AUTO) 9.6 % (3-13); PLATELET COUNT 327 10^3/uL (150-450); RED BLOOD COUNT 4.09 10^6/uL (4.35-5.55); RED CELL DISTRIBUTION WIDTH 13.3 % (11.5-14.0); SEGMENTED NEUTROPHILS % (AUTO) 65.4 % (42-78); TOTAL CELLS COUNTED % (AUTO) 100 %; WHITE BLOOD COUNT 7.8 10^3/uL (4.0-10.5)
[2019-02-20 06:21] LABS: ANION GAP 15 (5-19); BLOOD UREA NITROGEN 11 mg/dL (7-20); CALCIUM 8.9 mg/dL (8.4-10.2); CARBON DIOXIDE 20 mmol/L (22-30); CHLORIDE 101 mmol/L (98-107); GLUCOSE 220 mg/dL (75-110); PHOSPHORUS 2.2 mg/dL (2.5-4.5)
[2019-02-20 06:22] LABS: POTASSIUM 3.7 mmol/L (3.6-5.0)
[2019-02-20] MEDS ORDERED: INSULIN GLARGINE,HUM.REC.ANLOG 1,000 UNIT/10 ML VIAL SUBCUT SCH (07:00)
[2019-02-20] MEDS ORDERED: INSULIN LISPRO 100 UNIT/ML 3 ML VIAL SUBCUT ONE ×2 (11:30→14:30)
[2019-02-20] MEDS: ENOXAPARIN SODIUM INJ 40 MG/0.4 ML DISP.SYRIN SUBCUT SCH (11:34)
[2019-02-20] MEDS: INSULIN GLARGINE,HUM.REC.ANLOG 1,000 UNIT/10 ML VIAL SUBCUT SCH (18:23)
[2019-02-20] MEDS: NORMAL SALINE 1000 ML 1,000 ML IV PRN (18:27)
[2019-02-20 19:32] LABS: ANION GAP 10 (5-19); BLOOD UREA NITROGEN 11 mg/dL (7-20); CALCIUM 9.1 mg/dL (8.4-10.2); CARBON DIOXIDE 26 mmol/L (22-30); CHLORIDE 99 mmol/L (98-107); GLUCOSE 231 mg/dL (75-110); PHOSPHORUS 2.5 mg/dL (2.5-4.5); POTASSIUM 3.1 mmol/L (3.6-5.0)
[2019-02-20] MEDS ORDERED: POTASSIUM CHLORIDE 10 MEQ CAPSULE.ER PO ONE (21:00)
[2019-02-21] MEDS: INSULIN REG, HUMAN 100 UNIT/ML 3 ML VIAL (PYX) SUBCUT SCH ×6 (02:21→21:07)
[2019-02-21 04:42] LABS: HEMATOCRIT 34.9 % (37.9-51.0); MEAN CORPUSCULAR HEMOGLOBIN 31.8 pg (27.0-33.4); MEAN CORPUSCULAR HGB CONC 34.4 g/dL (32.0-36.0); MEAN CORPUSCULAR VOLUME 92 fl (80-97); PLATELET COUNT 347 10^3/uL (150-450); RED BLOOD COUNT 3.77 10^6/uL (4.35-5.55); RED CELL DISTRIBUTION WIDTH 13.2 % (11.5-14.0); WHITE BLOOD COUNT 6.5 10^3/uL (4.0-10.5)
[2019-02-21] MEDS: INSULIN GLARGINE,HUM.REC.ANLOG 1,000 UNIT/10 ML VIAL SUBCUT SCH ×2 (06:14→20:08)
[2019-02-21] MEDS: ACETAMINOPHEN 325 MG TABLET PO PRN ×2 (06:17→22:30)
[2019-02-21 09:25] LABS: ANION GAP 12 (5-19); BLOOD UREA NITROGEN 9 mg/dL (7-20); CALCIUM 8.8 mg/dL (8.4-10.2); CARBON DIOXIDE 25 mmol/L (22-30); CHLORIDE 102 mmol/L (98-107); GLUCOSE 191 mg/dL (75-110); PHOSPHORUS 2.9 mg/dL (2.5-4.5); POTASSIUM 3.3 mmol/L (3.6-5.0)
[2019-02-21] MEDS: ENOXAPARIN SODIUM INJ 40 MG/0.4 ML DISP.SYRIN SUBCUT SCH (11:26)
--- NOTE | 2019-02-21 15:54 | PDOC CRITICAL CARE PROG REPORT ---
General Date:: 02/21/19 ICU Day:: 4 Ventilator Day:: 0 Hospital Day:: 4 Events in the past 12 to 24 Hours:: Gap has closed and glucose has improved. Reason for ICU Addmission:: DKA - Medications: Medications reviewed and adjusted accordingly: Yes Vasopressors:: none Sedation:: None Physical Exam Vital Signs: Temp Pulse Resp BP Pulse Ox 98.6 F 86 18 132/76 H 100 02/21/19 04:00 02/20/19 20:00 02/21/19 06:01 02/21/19 06:01 02/21/19 06:01 Intake & Output 02/20/19 02/21/19 02/22/19 06:59 06:59 06:59 Intake Total 3134 1362 Output Total 3400 3040 Balance -266 -1678 Weight 117.2 kg 120.5 kg Weight/Height Weight 120.5 kg Height 5 ft 8 in General appearance: PRESENT: no acute distress, cooperative, morbidly obese, well-developed, well-nourished Exam: 49-year-old older appearing black male in no active distress awake alert oriented x3 Head exam: PRESENT: atraumatic, normocephalic Eye exam: PRESENT: conjunctiva pink, EOMI, PERRLA. ABSENT: conjunctival injection, scleral icterus Mouth exam: PRESENT: dry mucosa - Improved from yesterday, neck supple, tongue midline Teeth exam: PRESENT: dental caries Neck exam: ABSENT: carotid bruit, JVD, lymphadenopathy, thyromegaly Respiratory exam: PRESENT: clear to auscultation fernandez, unlabored. ABSENT: rales, rhonchi, tachypnea, wheezes Cardiovascular exam: PRESENT: RRR, +S1, +S2. ABSENT: diastolic murmur, rubs, systolic murmur Pulses: PRESENT: normal dorsalis pedis pul, +2 pedal pulses bilateral Vascular exam: PRESENT: normal capillary refill GI/Abdominal exam: PRESENT: normal bowel sounds, soft. ABSENT: ascites, distended, guarding, mass, organolmegaly, rebound, tenderness Rectal exam: PRESENT: deferred Extremities exam: ABSENT: pedal edema, tenderness Musculoskeletal exam: PRESENT: ambulatory, normal inspection. ABSENT: deformity, dislocation, tenderness Neurological exam: PRESENT: alert, awake, oriented to person, oriented to place, oriented to time, oriented to situation, CN II-XII grossly intact, normal gait. ABSENT: ataxia, motor sensory deficit Psychiatric exam: PRESENT: appropriate affect, normal mood. ABSENT: homicidal ideation, suicidal ideation Focused psych exam: ABSENT: psychomotor agitation Skin exam: PRESENT: dry, intact, normal color, warm. ABSENT: cyanosis, pallor, rash Tubes/Lines: ABSENT: Endotracheal Tube, Chest Tube, Central Line, Arterial Catheter, Dialysis catheter, Peg Tube, Nasogastic Tube, Other Laboratory/Radiographs Laboratory Results: 02/21/19 04:07 02/20/19 18:53 02/20/19 02/21/19 18:53 04:07 WBC 6.5 RBC 3.77 L Hgb 12.0 L Hct 34.9 L MCV 92 MCH 31.8 MCHC 34.4 RDW 13.2 Plt Count 347 Sodium 134.9 L Potassium 3.1 L Chloride 99 Carbon Dioxide 26 Anion Gap 10 BUN 11 Creatinine 0.81 Est GFR ( Amer) > 60 Glucose 231 H Calcium 9.1 Phosphorus 2.5 Magnesium 1.7 Assessment and Plan - Diagnosis (1) DKA, type 1, not at goal Is this a current diagnosis for this admission?: Yes Plan: Improved. Gap now closed. Hyperglycemia improved. Increased long-acting insulin to 36 units bid. (2) Medically noncompliant Is this a current diagnosis for this admission?: Yes Plan: Will need education and case management for financial assistance. Case management involved (3) Acute kidney failure Qualifiers: Acute renal failure type: with other specified pathological lesion Qualified Code(s): N17.8 - Other acute kidney failure Is this a current diagnosis for this admission?: Yes Plan: from dehydration, [id number] (4) Morbid obesity due to excess calories Is this a current diagnosis for this admission?: Yes (5) Dehydration Is this a current diagnosis for this admission?: Yes Plan: improved. Mucous membranes more moist (6) Hyponatremia with decreased serum osmolality Is this a current diagnosis for this admission?: Yes Plan: Resolved (7) History of essential hypertension Is this a current diagnosis for this admission?: Yes (9) Type 2 diabetes mellitus Qualifiers: Diabetes mellitus exterminator termite insulin use: with shelter use Diabetes mellitus complication status: without complication Qualified Code(s): E11.9 - Type 2 diabetes mellitus without complications; Z79.4 - halfway (current) use of insulin Is this a current diagnosis for this admission?: Yes Plan Summary: 02.21.19: Patient's anion gap has now closed. His hyperglycemia is improving however not to the degree that would be safe to prevent DKA. I have increased his long- acting insulin therapy to 36 units twice a day. He has been on a large dose of 70/30 NPH. He has significant social issues which make management of his diabetes quite complicated. He has basically become sedentary and it has been difficult for him to understand the need for activity and movement. We have had to encourage him to walk while in the confines of the ICU. We involved physical therapy to assure that there was no mechanical issue which would preclude him from walking. He does not have insurance and would choose non-essential items in priority over his health care. He will need close monitoring and has received diabetic education to assure that he understands this. Patient has potential for discharge in the next 24 hours however we want to assure a stable glucose pattern. He has essential hypertension and will restart his medications. His renal failure has improved so will reintroduce SAMANTHA inhibitor She has been downgraded from ICU status. 02.20.19: Patient still has hyperglycemia and have increased his baseline basal insulin. 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 Have adjusted his subcutaneous coverage as well. Have encouraged the patient to become ambulatory and have asked the nurses to continue to motivate the patient for movement. We will continue to follow electrolytes to assure closure of his anion gap. Case management and social contact worker have met with the patient as well as the early childhood educator aide to discuss concerns, options and plans for the patient. He currently works for and only gets given sedation but does not receive healthcare coverage We will consider use of Glucophage and other medications when he is closed to discharge from the ICU. He has been downgraded to floor status. Critical Time Critical Time (minutes): 0 - [id number] Level of Care: MEDICAL Anticipated discharge: Home Within: within 24 hours -: 1. The care of a critical patient is a dynamic process. This note is a accounts receivable representative synopsis but static in nature. The timeframe for treatments given in order is not necessary the actual time these treatments may have been done. 2. This patient requires critical care secondary to ongoing requirements for therapy not offered or safe outside the critical care environment. Transfer to a lower level of care with altered life or limb morbidity and mortality. 3. Multidisciplinary rounds completed. 4. ABCDE bundle addressed.
[2019-02-21] MEDS ORDERED: INSULIN GLARGINE,HUM.REC.ANLOG 1,000 UNIT/10 ML VIAL (PYX) SUBCUT ONE (20:03)
[2019-02-21] MEDS ORDERED: POTASSIUM CHLORIDE 10 MEQ CAPSULE.ER PO ONE (20:30)
[2019-02-22] MEDS: INSULIN REG, HUMAN 100 UNIT/ML 3 ML VIAL (PYX) SUBCUT SCH ×3 (01:34→09:40)
[2019-02-22] MEDS: NORMAL SALINE 1000 ML 1,000 ML IV PRN ×3 (02:45→20:41)
[2019-02-22 05:01] LABS: ABSOLUTE EOSINOPHILS # (AUTO) 0.1 10^3/uL (0.0-0.6); ABSOLUTE LYMPHOCYTES (AUTO) 2.3 10^3/uL (0.5-4.7); ABSOLUTE MONOCYTES (AUTO) 0.7 10^3/uL (0.1-1.4); BASOPHILS % (AUTO) 0.7 % (0-2); EOSINOPHILS % (AUTO) 1.7 % (0-6); HEMOGLOBIN 11.7 g/dL (13.5-17.0); LYMPHOCYTES % (AUTO) 37.5 % (13-45); MEAN CORPUSCULAR HEMOGLOBIN 32.5 pg (27.0-33.4); MEAN CORPUSCULAR HGB CONC 35.4 g/dL (32.0-36.0); MEAN CORPUSCULAR VOLUME 92 fl (80-97); MONOCYTES % (AUTO) 10.8 % (3-13); PLATELET COUNT 361 10^3/uL (150-450); RED BLOOD COUNT 3.59 10^6/uL (4.35-5.55); RED CELL DISTRIBUTION WIDTH 13.4 % (11.5-14.0); SEGMENTED NEUTROPHILS % (AUTO) 49.3 % (42-78); TOTAL CELLS COUNTED % (AUTO) 100 %
[2019-02-22 05:04] LABS: ANION GAP 7 (5-19); BLOOD UREA NITROGEN 8 mg/dL (7-20); CALCIUM 8.9 mg/dL (8.4-10.2); CARBON DIOXIDE 33 mmol/L (22-30); CHLORIDE 99 mmol/L (98-107); GLUCOSE 137 mg/dL (75-110)
[2019-02-22 05:12] LABS: POTASSIUM 2.9 mmol/L (3.6-5.0)
[2019-02-22] MEDS ORDERED: POTASSIUM CHLORIDE 10 MEQ CAPSULE.ER PO ONE (05:13)
[2019-02-22] MEDS: INSULIN GLARGINE,HUM.REC.ANLOG 1,000 UNIT/10 ML VIAL SUBCUT SCH (06:18)
[2019-02-22 06:31] LABS: APPEARANCE,URINE CLEAR; BILIRUBIN,URINE NEGATIVE (NEGATIVE); COLOR,URINE YELLOW; GLUCOSE, URINE >=500 mg/dL (NEGATIVE); KETONES,URINE NEGATIVE (NEGATIVE); LEUKOCYTE ESTERASE,URINE NEGATIVE (NEGATIVE); NITRITE,URINE NEGATIVE (NEGATIVE); PROTEIN,URINE NEGATIVE (NEGATIVE); URINE SPECIFIC GRAVITY 1.014
[2019-02-22] MEDS: ENOXAPARIN SODIUM INJ 40 MG/0.4 ML DISP.SYRIN SUBCUT SCH (09:39)
[2019-02-22] MEDS: MAGNESIUM OXIDE 400 MG TABLET PO SCH ×2 (09:39→17:29)
[2019-02-22] MEDS: POTASSI CL 20 MEQ/50 ML RIDER 20 MEQ/50 ML RTUPB IV SCH ×2 (09:40→11:30)
[2019-02-22] MEDS: INSULIN LISPRO 100 UNIT/ML 3 ML VIAL SUBCUT SCH ×3 (11:30→21:58)
--- NOTE | 2019-02-22 14:31 | PDOC PROGRESS REPORT ---
Subjective Progress Note for:: 02/22/19 Subjective:: Patient currently states that abdominal pain and nausea and vomiting have all resolved. Patient expresses that he was not taking his Humulin 70/30 for a few days which led to his DKA. He also endorses that he used to take lisinopril 10 mg daily for hypertension. Has not been taking meds because of financial issues. States that he does not have insurance. Reason For Visit: DKA Physical Exam Vital Signs: Temp Pulse Resp BP Pulse Ox 97.1 F 75 17 109/70 100 02/22/19 11:08 02/22/19 11:08 02/22/19 11:08 02/22/19 11:08 02/22/19 11:08 Intake & Output 02/21/19 02/22/19 02/23/19 06:59 06:59 06:59 Intake Total 1362 1266 96 Output Total 3040 1425 Balance -1678 -159 96 Weight 120.5 kg 119.4 kg General appearance: PRESENT: no acute distress, cooperative Head exam: PRESENT: atraumatic Neck exam: ABSENT: JVD Respiratory exam: PRESENT: clear to auscultation fernandez, unlabored. ABSENT: rhonchi, tachypnea, wheezes Cardiovascular exam: PRESENT: RRR, +S1, +S2. ABSENT: tachycardia GI/Abdominal exam: PRESENT: normal bowel sounds, soft. ABSENT: rebound, rigid, tenderness Neurological exam: PRESENT: alert, awake, oriented to person, oriented to place, oriented to time, oriented to situation Results Laboratory Results: 02/22/19 04:35 02/22/19 04:35 02/22/19 02/22/19 02/22/19 04:35 04:35 05:15 WBC 6.0 RBC 3.59 L Hgb 11.7 L Hct 33.0 L MCV 92 MCH 32.5 MCHC 35.4 RDW 13.4 Plt Count 361 Seg Neutrophils % 49.3 Sodium 138.8 Potassium 2.9 L* Chloride 99 Carbon Dioxide 33 H Anion Gap 7 BUN 8 Creatinine 0.75 Est GFR ( Amer) > 60 Glucose 137 H Calcium 8.9 Phosphorus 3.0 Magnesium 1.5 L Urine Color YELLOW Urine Appearance CLEAR Urine pH 6.0 Ur Specific [place] 1.014 Urine Protein NEGATIVE Urine Glucose (UA) >=500 H Urine Ketones NEGATIVE Urine Blood NEGATIVE Urine Nitrite NEGATIVE Ur Leukocyte Esterase NEGATIVE Urine WBC (Auto) 1 Urine RBC (Auto) 0 Assessment and Plan - Diagnosis (1) Type 2 diabetes mellitus Qualifiers: Diabetes mellitus joint terminal attack controller insulin use: with joint terminal attack controller use Diabetes mellitus complication status: with hyperglycemia Qualified Code(s): E11.65 - Type 2 diabetes mellitus with hyperglycemia; Z79.4 - residential (current) use of insulin Is this a current diagnosis for this admission?: Yes Plan: Patient has not been taking his home dose of Humulin 70/30 for some time now due to financial issues. Given cost limitation, I will discontinue Lantus and restart Humulin 70/30 at the dose of 30 units twice daily before meals. A1c noted of 11 which is likely from noncompliance issues Discharge planning consulted to see if any help with medications cost is possible (2) DKA, type 2 Qualifiers: Diabetes mellitus intermediate insulin use: unspecified intermediate insulin use status Diabetes mellitus complication detail: without coma Qualified Co de(s): E11.10 - Type 2 diabetes mellitus with ketoacidosis without coma Is this a current diagnosis for this admission?: Yes Plan: Resolved (3) Hypertension Is this a current diagnosis for this admission?: Yes Plan: Restarting lisinopril 10 mg daily. Will monitor blood pressure response. (4) Morbid obesity with BMI of 40.0-44.9, adult Is this a current diagnosis for this admission?: Yes Plan: Counseled on weight loss and benefits to diabetes control - Time Time Spent with patient: 15-24 minutes Anticipated discharge: Home Within: within 36 hours - Inpatient Certification Based on my medical assessment, after consideration of the patient's comorbidities, presenting symptoms, or acuity I expect that the services needed warrant INPATIENT care.: Yes Medical Necessity: Need Close Monitoring Due to Risk of Patient Decompensation, Risk of Complication if Not Cared For in Hospital
[2019-02-22 15:39] LABS: ANION GAP 5 (5-19); BLOOD UREA NITROGEN 8 mg/dL (7-20); CALCIUM 8.7 mg/dL (8.4-10.2); CARBON DIOXIDE 30 mmol/L (22-30); CHLORIDE 100 mmol/L (98-107); GLUCOSE 271 mg/dL (75-110); POTASSIUM 3.7 mmol/L (3.6-5.0)
[2019-02-22] MEDS ORDERED: HUM INSULIN NPH/REG INSULIN HM 100 UNIT/1 ML 3 ML SUBCUT SCH (16:00)
[2019-02-23 06:36] LABS: HEMATOCRIT 30.5 % (37.9-51.0); HEMOGLOBIN 10.5 g/dL (13.5-17.0); MEAN CORPUSCULAR HEMOGLOBIN 32.2 pg (27.0-33.4); MEAN CORPUSCULAR HGB CONC 34.4 g/dL (32.0-36.0); MEAN CORPUSCULAR VOLUME 94 fl (80-97); PLATELET COUNT 377 10^3/uL (150-450); RED BLOOD COUNT 3.26 10^6/uL (4.35-5.55); RED CELL DISTRIBUTION WIDTH 13.6 % (11.5-14.0); WHITE BLOOD COUNT 7.1 10^3/uL (4.0-10.5)
[2019-02-23 06:53] LABS: ANION GAP 5 (5-19); BLOOD UREA NITROGEN 6 mg/dL (7-20); CALCIUM 8.9 mg/dL (8.4-10.2); CARBON DIOXIDE 33 mmol/L (22-30); CHLORIDE 100 mmol/L (98-107); GLUCOSE 74 mg/dL (75-110); POTASSIUM 3.2 mmol/L (3.6-5.0)
[2019-02-23] MEDS ORDERED: MAGNESIUM OXIDE 400 MG TABLET PO ONE ×2 (08:45→12:15)
[2019-02-23] MEDS ORDERED: LISINOPRIL 10 MG TABLET PO SCH (10:00)
[2019-02-23] MEDS: INSULIN LISPRO 100 UNIT/ML 3 ML VIAL SUBCUT SCH ×3 (11:02→12:09)
[2019-02-23] MEDS: ENOXAPARIN SODIUM INJ 40 MG/0.4 ML DISP.SYRIN SUBCUT SCH (11:20)
[2019-02-23] MEDS ORDERED: HUM INSULIN NPH/REG INSULIN HM 100 UNIT/1 ML 3 ML SUBCUT ONE (12:00)
--- NOTE | 2019-02-23 13:27 | PDOC DISCHARGE SUMMARY ---
Impression - Admit/DC Date/PCP Admission Date/Primary Care Provider: 02/18/19 04:56 TREVIN LATHAM MD Discharge Date: 02/23/19 - Discharge Diagnosis (1) Type 2 diabetes mellitus Is this a current diagnosis for this admission?: Yes (2) DKA, type 2 Is this a current diagnosis for this admission?: Yes (3) Hypertension Is this a current diagnosis for this admission?: Yes (4) Morbid obesity with BMI of 40.0-44.9, adult Is this a current diagnosis for this admission?: Yes - Assessment Summary: Patient was initially admitted to the ICU for treatment of diabetic ketoacidosis. He was started on insulin drip with aggressive IV fluids and the drip was titrated as required. DKA protocol was initiated with repeat metabolic panels, blood gases, and hourly Accu-Cheks. His anion gap was subsequently closed and DKA resolved. Patient was started on overlap therapy with Lantus. He was subsequently transferred out of the ICU to the medical floors. Upon further discussion with patient, patient states that he was not taking his Humulin 70/30 due to financial issues. Given that Humulin is less expensive than Lantus, I placed patient back on Humulin 70/30. A1c was significantly elevated likely secondary to noncompliance. I have placed patient on Humulin 70/30 30 units twice a day before meals. Patient was seen by caser in referred patient to [facility] where he can get free supply of his insulin regimen. The information will be given to patient upon discharge. I have also restarted the lisinopril 10 mg daily for his blood pressure which he has not been taking quite some time also due to financial issues. - Additional Information Resuscitation Status: Full Code Discharge Diet: Diabetic Discharge Activity: Activity As Tolerated Referrals: [facility] [Provider Group] (They are not excepting appointments until 2018. . ) TREVIN LATHAM MD [Primary Care Provider] - Follow up as needed (The patient does not have any insurance to see the physican.) Prescriptions: Hum Insulin NPH/Reg Insulin Hm [Insulin 70-30 (NPH/Reg) 100 unit/mL] 30 unit SUBCUT BIDACBS #20 ml Lisinopril [Prinivil 10 mg Tablet] 10 mg PO DAILY 30 Days tablet Home Medications: Hum Insulin NPH/Reg Insulin Hm [Insulin 70-30 (NPH/Reg) 100 unit/mL] 30 unit SUBCUT BIDACBS #20 ml 02/23/19 Lisinopril [Prinivil 10 mg Tablet] 10 mg PO DAILY 30 Days tablet 02/23/19 History of Present Illiness History of Present Illness: DAVI IVEY is a 49 yo diabetic said to be type 2 but is hospitalized for the third time this year for DKA. No intercurrent illness but due to financial pressures cannot afford lantus, only humalog which has not kept him out of DKA. He corrected quickly last time and sugars have gone from 440 to 108 in a few hours. BMP pending and I anticipate less than 24 hours on drip. Will involve social security benefits interviewer to explore options for obtaining lantus. Physical Exam Vital Signs: Temp Pulse Resp BP Pulse Ox 98.1 F 82 20 111/67 99 02/23/19 04:13 02/23/19 04:13 02/23/19 04:13 02/23/19 04:13 02/23/19 04:13 Intake & Output 02/22/19 02/23/19 02/24/19 06:59 06:59 06:59 Intake Total 1266 3556 Output Total 1425 3050 Balance -159 506 Weight 119.4 kg 120.7 kg General appearance: PRESENT: no acute distress, cooperative Respiratory exam: PRESENT: clear to auscultation fernandez Cardiovascular exam: PRESENT: RRR, +S1, +S2 GI/Abdominal exam: PRESENT: normal bowel sounds, soft. ABSENT: tenderness Neurological exam: PRESENT: alert, awake Results Laboratory Results: WBC 7.1 10^3/uL (4.0-10.5) 02/23/19 05:54 RBC 3.26 10^6/uL (4.35-5.55) L 02/23/19 05:54 Hgb 10.5 g/dL (13.5-17.0) L 02/23/19 05:54 Hct 30.5 % (37.9-51.0) L 02/23/19 05:54 MCV 94 fl (80-97) 02/23/19 05:54 MCH 32.2 pg (27.0-33.4) 02/23/19 05:54 MCHC 34.4 g/dL (32.0-36.0) 02/23/19 05:54 RDW 13.6 % (11.5-14.0) 02/23/19 05:54 Plt Count 377 10^3/uL (150-450) 02/23/19 05:54 Lymph % (Auto) 37.5 % (13-45) 02/22/19 04:35 [place] % (Auto) 10.8 % (3-13) 02/22/19 04:35 Eos % (Auto) 1.7 % (0-6) 02/22/19 04:35 Baso % (Auto) 0.7 % (0-2) 02/22/19 04:35 Absolute Neuts (auto) 3.0 10^3/uL (1.7-8.2) 02/22/19 04:35 Absolute Lymphs (auto) 2.3 10^3/uL (0.5-4.7) 02/22/19 04:35 Absolute Monos (auto) 0.7 10^3/uL (0.1-1.4) 02/22/19 04:35 Absolute Eos (auto) 0.1 10^3/uL (0.0-0.6) 02/22/19 04:35 Absolute Basos (auto) 0.0 10^3/uL (0.0-0.2) 02/22/19 04:35 Seg Neutrophils % 49.3 % (42-78) 02/22/19 04:35 VBG pH 7.12 (7.30-7.42) L* 02/18/19 02:37 VBG pCO2 36.1 mmHg (35-63) 02/18/19 02:37 VBG HCO3 11.5 mmol/L (20-32) L 02/18/19 02:37 VBG Base Excess -17.0 mmol/L 02/18/19 02:37 Sodium 138.3 mmol/L (137-145) 02/23/19 05:54 Potassium 3.2 mmol/L (3.6-5.0) L 02/23/19 05:54 Chloride 100 mmol/L (98-107) 02/23/19 05:54 Carbon Dioxide 33 mmol/L (22-30) H 02/23/19 05:54 Anion Gap 5 (5-19) 02/23/19 05:54 BUN 6 mg/dL (7-20) L 02/23/19 05:54 Creatinine 0.69 mg/dL (0.52-1.25) 02/23/19 05:54 Est GFR ( Amer) > 60 (>60) 02/23/19 05:54 Est GFR (Non-Af Amer) Cancelled 02/18/19 10:21 Est GFR (MDRD) Non-Af > 60 (>60) 02/23/19 05:54 Glucose 74 mg/dL (75-110) L 02/23/19 05:54 POC Glucose 191 mg/dL (70-110) H 02/23/19 11:08 Hemoglobin A1c % 11.8 % (4.7-6.0) H 02/20/19 05:15 Calcium 8.9 mg/dL (8.4-10.2) 02/23/19 05:54 Phosphorus 3.0 mg/dL (2.5-4.5) 02/22/19 04:35 Magnesium 1.5 mg/dL (1.6-2.3) L 02/23/19 05:54 Total Bilirubin 1.8 mg/dL (0.2-1.3) H 02/18/19 02:37 Direct Bilirubin 0.6 mg/dL (0.0-0.4) H 02/18/19 02:37 Neonat Total Bilirubin Not Reportable 02/18/19 02:37 Neonat Direct Bilirubin Not Reportable 02/18/19 02:37 Neonat Indirect Bili Not Reportable 02/18/19 02:37 AST 18 U/L (17-59) 02/18/19 02:37 ALT 15 U/L (<50) 02/18/19 02:37 Alkaline Phosphatase 105 U/L (38-126) 02/18/19 02:37 Total Protein 10.3 g/dL (6.3-8.2) H 02/18/19 02:37 Albumin 5.7 g/dL (3.5-5.0) H 02/18/19 02:37 EGFR Cancelled 02/18/19 10:21 Urine Color YELLOW 02/22/19 05:15 Urine Appearance CLEAR 02/22/19 05:15 Urine pH 6.0 (5.0-9.0) 02/22/19 05:15 Ur Specific [place] 1.014 02/22/19 05:15 Urine Protein NEGATIVE mg/dL (NEGATIVE) 02/22/19 05:15 Urine Glucose (UA) >=500 mg/dL (NEGATIVE) H 02/22/19 05:15 Urine Ketones NEGATIVE mg/dL (NEGATIVE) 02/22/19 05:15 Urine Blood NEGATIVE (NEGATIVE) 02/22/19 05:15 Urine Nitrite NEGATIVE (NEGATIVE) 02/22/19 05:15 Urine Bilirubin NEGATIVE (NEGATIVE) 02/22/19 05:15 Urine Urobilinogen 4.0 mg/dL (<2.0) H 02/22/19 05:15 Ur Leukocyte Esterase NEGATIVE (NEGATIVE) 02/22/19 05:15 Urine WBC (Auto) 1 /HPF 02/22/19 05:15 Urine RBC (Auto) 0 /HPF 02/22/19 05:15 U Hyaline Cast (Auto) 11 /LPF 02/18/19 02:42 Squamous Epi Cells Auto <1 /HPF 02/18/19 02:42 Urine Mucus (Auto) OCC /LPF 02/22/19 05:15 Urine Ascorbic Acid NEGATIVE (NEGATIVE) 02/22/19 05:15 Plan Time Spent: Less than 30 Minutes Stroke Is this a Stroke Patient?: No Acute Heart Failure - Is this a Heart Failure Patient?: No
[2019-02-23 13:56] VITALS: BP 148/106
== END 2019-02-23 15:04 | disposition home or self-care (01) | DRG 638 ==
LOC: ER 01:57 → EH 04:56 → ICU 06:36 → 3W 02-22 06:14
PROVIDERS: ADMIT Anesthesiology; ATTEND Anesthesiology
DX: E11.10 Type 2 diabetes mellitus with ketoacidosis without coma (principal); E87.1 Hypo-osmolality and hyponatremia; N17.9 Acute kidney failure, unspecified; T38.3X6A Underdosing of insulin and oral hypoglycemic [antidiabetic] drugs, initial encounter; E86.0 Dehydration; E78.5 Hyperlipidemia, unspecified; I10 Essential (primary) hypertension; Z91.120 Patient's intentional underdosing of medication regimen due to financial hardship; E66.01 Morbid (severe) obesity due to excess calories; Z23 Encounter for immunization; Z79.4 Long term (current) use of insulin; Z79.899 Other long term (current) drug therapy
CPT/HCPCS: 36415; 80048; 80053; 81001; 82803; 82962; 83036; 83735; 84100; 85025; 85027; 90686; 93005; 93010; 96360; 96361; 99233; 99285; J1650; J1815; J3475; J3480; J3490; J7030; J7040; J7050; J7060